=== PATIENT | female | born 1960 | race Caucasian/White ===

== ENCOUNTER 2017-12-07 14:59 | Emergency (ER) | payer OTHER ==
[~2017-12-07 14:59] MED LIST: CARI350 PO; COMPAZINE10 MG PO; DIAZ5 PO; ESOM20; FAMO40 PO; KETO10 PO; LOPE2C PO; LORA1 PO; LORA2 PO; MELO7.5; METCAR750; MORP15ER PO; OXYACE5T PO; OXYC15ER PO; OXYC30ER PO; OXYC5 PO; RXLORA1 PO; TRAACE
== END 2017-12-07 15:45 | disposition left against medical advice (07) ==
LOC: ER 14:59
DX: Z53.21 Procedure and treatment not carried out due to patient leaving prior to being seen by health care provider (principal)

== ENCOUNTER 2021-07-06 11:53 | Inpatient (IN) | payer BC ==
[~2021-07-06] VITALS: Ht 177.8 cm; Wt 172.8 kg
[2021-07-06] MEDS ORDERED: Oxycodone HCl20 M1 PO (12:15)
[2021-07-06] MEDS ORDERED: OXYCONTIN30 MG PO (12:15)
[2021-07-06 12:49] LABS: Hematocrit 40.3 % (33.0-51.0); Hemoglobin 13.6 g/dL (11.5-16.0); Mean Corpuscular HGB 31.9 pg (26.0-34.0); Mean Corpuscular HGB Conc 33.7 g/dL (31.5-36.5); Mean Corpuscular Volume 94 fL (80-100); Mean Platelet Volume 9.1 fL (9.1-12.4); Platelet Count 461 K/mm3 (150-400); RDW Coefficient Variation 13.7 % (11.7-14.2); RDW Standard Deviation 47.5 fL (35.1-46.3); Red Blood Cell Count 4.27 M/mm3 (3.80-5.20); White Blood Cell Count 33.26 K/mm3 (4.00-11.30)
[2021-07-06 13:01] LABS: BAND PERCENT MAN 18 % (0-8); BASOPHILS PERCENT MAN 0 % (0-2); EOSINOPHILS PERCENT MAN 0 % (0-6); LYMPHOCYTES ABSOLUTE MAN 1.99 K/mm3 (0.84-5.20); LYMPHOCYTES PERCENT MAN 6 % (21-46); MONOCYTES ABSOLUTE MAN 0.99 K/mm3 (0.16-1.47); MONOCYTES PERCENT MAN 3 % (4-13); NEUTROPHILS ABSOLUTE MAN 30.26 K/mm3 (1.96-9.15); SEG NEUTROPHILS PERCENT MAN 73 % (41-73); TOTAL CELLS COUNTED 100
[2021-07-06 13:02] LABS: Anion Gap 9 mmol/L (6-16); Blood Urea Nitrogen 21 mg/dL (8-24); CO2, Blood 21 mmol/L (21-32); Calcium, Blood 8.8 mg/dL (8.5-10.1); Chloride, Blood 91 mmol/L (98-108); Creatinine, Blood 0.78 mg/dL (0.40-1.00); Glomerular Filtration Rate >60 (60-); Glucose, Blood 142 mg/dL (70-99); Potassium, Blood 4.6 mmol/L (3.5-5.5); Sodium, Blood 121 mmol/L (136-145); Troponin I <0.015 ng/mL (0.000-0.040)
[2021-07-06 13:33] LABS: SARS-Cov-2 (COVID-19) PCR, MMC NEGATIVE (NEGATIVE)
[2021-07-06 17:33] LABS: Source, Urine Catheter
[2021-07-06 17:37] LABS: Appearance, Urine Clear (Clear); Bilirubin, Urine Neg (Neg); Blood, Urine Neg (Neg); Glucose Qualitative, Urine Neg (Neg); Ketones, Urine Neg (Neg); Leukocyte Esterase, Urine Neg (Neg); Nitrite, Urine Neg (Neg); Protein, Urine Neg (Neg); Specific Gravity, Urine 1.005 (1.003-1.022); Urobilinogen, Urine NORM (Normal)
[2021-07-06 17:38] LABS: Color, Urine Pale Yellow (P-Yellow)
--- NOTE | 2021-07-06 18:50 | NUR ---
PT ADMITED TO FLOOR AT 1700,PT HAVE CELLULITIS IN BOTH LEGS LOWER EXTREMITIES EDEMA,PT IS AO X 4, PT DENIES N/V,SOB, PT IS IN BED BED IN LOW POSITON,WALL LIGHT WITHIN REACH WILL CONTINUE TO MONITOR.
[2021-07-06 19:23] LABS: Anion Gap 7 mmol/L (6-16); Blood Urea Nitrogen 15 mg/dL (8-24); Bun/Creatinine Ratio 25.5 (12.0-20.0); CO2, Blood 21 mmol/L (21-32); Chloride, Blood 102 mmol/L (98-108); Creatinine, Blood 0.59 mg/dL (0.40-1.00); Glomerular Filtration Rate >60 (60-); Glucose, Blood 99 mg/dL (70-99); Potassium, Blood 3.2 mmol/L (3.5-5.5); Sodium, Blood 130 mmol/L (136-145)
--- NOTE | 2021-07-06 19:45 | NUR ---
PAIN MEDICATION NOTED IN THE EMAR THAT THE PT DID NOT RECEIVE THE SCHEDULED 1615 DOSE OF ROXICODONE. PT GIVEN MEDICATION BEFORE GOING TO CT SCAN.
--- NOTE | 2021-07-06 22:10 | NUR ---
VOICED WE COULD SPEAK WITH HER DAUGHTER RE HER CONDITION/UPDATE. WAS ASSISTED TO AIDE TO GO TO RADIOLOGY FOR CT OF BLE. I SPOKE WITH HER DAUGHTER "SUZE" RE HER GOING TO CT FOR EVAL OF BLE. DAUGHTER CURIOUS RE COVID, NO NOTED INFO IN ED DOCUMENTATION. NO NOTED FEVER OR COUGH AT THIS TIME OTHER THAN WHEN SHE TRIED TO DRINK H20 AND COUGHED AT THAT TIME. WILL MONITOR
--- NOTE | 2021-07-06 22:31 | NUR ---
RETURNED TO FLOOR FROM THE CT. ASSISTED BACK TO BED BY 4 PERSONS. HOB ELEVATED FOR COMFORT, CALL LIGHT IN REACH
--- NOTE | 2021-07-06 23:13 | NUR ---
TEMP 103.3, NOTIFIED AND ORDERS FOR TYLENOL PO PRN OBTAINED.
--- NOTE | 2021-07-07 00:13 | NUR ---
TYLENOL EFFECTIVE, TEMP 99.4 TEMPORAL. ALERT AND ORIENTED. CALL LIGHT IN REACH
[2021-07-07 00:44] LABS: Anion Gap 8 mmol/L (6-16); Blood Urea Nitrogen 16 mg/dL (8-24); Bun/Creatinine Ratio 19.3 (12.0-20.0); CO2, Blood 23 mmol/L (21-32); Chloride, Blood 93 mmol/L (98-108); Creatinine, Blood 0.83 mg/dL (0.40-1.00); Glomerular Filtration Rate >60 (60-); Glucose, Blood 138 mg/dL (70-99); Potassium, Blood 4.2 mmol/L (3.5-5.5); Sodium, Blood 124 mmol/L (136-145)
[2021-07-07 00:45] LABS: Calcium, Blood 8.5 mg/dL (8.5-10.1)
--- NOTE | 2021-07-07 03:16 | NUR ---
EDGE BLACKER SUMMARY HAS BEEN RESTING QUIETLY WITH FEW INTERRUPTIONS SINCE RETURNING TO ROOM AFTER CT OF BLE. HOB ELEVATED FOR BREATHING COMFORT AND PER PT REQUEST SHE VOICED HX OF "BROKE (HER) BACK" AND IT FEELS BETTER IN THIS POSITION. VOICED HX NECK SURGERY IN THE PAST AND HAS HAD DECREASED FEELING IN HER HANDS SINCE BACK THEN. TEMP WAS ELEVATED (103.3) AND RECEIVED TYLENOL. LATER TEMP WAS 99.4 TEMPORAL, MED EFFECTIVE. MCINTYRE DRAINING. BLE SWOLLEN WITH DISCOLORED, DRY SKIN. IV ANTIBIOTICS ADMNISTERED FOR INFLAMMATION. CALL LIGHT IN REACH
[2021-07-07 06:23] LABS: Hematocrit 36.9 % (33.0-51.0); Hemoglobin 12.7 g/dL (11.5-16.0); Mean Corpuscular HGB 32.1 pg (26.0-34.0); Mean Corpuscular HGB Conc 34.4 g/dL (31.5-36.5); Mean Corpuscular Volume 93 fL (80-100); Mean Platelet Volume 9.2 fL (9.1-12.4); NRBC ABSOLUTE 0.03 K/mm3 (0.00-0.02); NRBC Auto 0.1 /100 WBC (0.0-0.2); Platelet Count 444 K/mm3 (150-400); RDW Coefficient Variation 13.9 % (11.7-14.2); Red Blood Cell Count 3.96 M/mm3 (3.80-5.20)
[2021-07-07 06:39] LABS: Alanine Aminotransfer (ALT/SGP 30 U/L (12-78); Albumin, Blood 1.9 g/dL (3.4-5.0); Albumin/Globulin Ratio 0.5 (0.8-1.8); Alk Phos 120 U/L (50-136); Anion Gap 9 mmol/L (6-16); Aspartate Aminotrans (AST/SGOT 15 U/L (12-37); Bilirubin, Total 1.2 mg/dL (0.1-1.0); Blood Urea Nitrogen 16 mg/dL (8-24); Bun/Creatinine Ratio 20.7 (12.0-20.0); CO2, Blood 23 mmol/L (21-32); Calcium, Blood 8.2 mg/dL (8.5-10.1); Chloride, Blood 93 mmol/L (98-108); Creatinine, Blood 0.77 mg/dL (0.40-1.00); Globulin, Blood 3.7 g/dL (2.2-4.0); Glomerular Filtration Rate >60 (60-); Glucose, Blood 128 mg/dL (70-99); Potassium, Blood 4.1 mmol/L (3.5-5.5); Sodium, Blood 125 mmol/L (136-145); Total Protein, Blood 5.6 g/dL (6.4-8.2)
[2021-07-07 07:10] LABS: BAND PERCENT MAN 26 % (0-8); BASOPHILS PERCENT MAN 0 % (0-2); EOSINOPHILS PERCENT MAN 0 % (0-6); LYMPHOCYTES ABSOLUTE MAN 4.44 K/mm3 (0.84-5.20); LYMPHOCYTES PERCENT MAN 10 % (21-46); METAMYELOCYTE ABSOLUTE MAN 0.44 K/mm3 (0.00-0.00); METAMYELOCYTE PERCENT MAN 1 % (0-0); MONOCYTES ABSOLUTE MAN 0.44 K/mm3 (0.16-1.47); MONOCYTES PERCENT MAN 1 % (4-13); MYELOCYTE ABSOLUTE MAN 1.77 K/mm3 (0.00-0.00); MYELOCYTE PERCENT MAN 4 % (0-0); NEUTROPHILS ABSOLUTE MAN 37.29 K/mm3 (1.96-9.15); SEG NEUTROPHILS PERCENT MAN 58 % (41-73); TOTAL CELLS COUNTED 100
[2021-07-07 12:27] LABS: Anion Gap 8 mmol/L (6-16); Blood Urea Nitrogen 17 mg/dL (8-24); Bun/Creatinine Ratio 23.2 (12.0-20.0); CO2, Blood 25 mmol/L (21-32); Calcium, Blood 7.9 mg/dL (8.5-10.1); Chloride, Blood 93 mmol/L (98-108); Creatinine, Blood 0.73 mg/dL (0.40-1.00); Glomerular Filtration Rate >60 (60-); Glucose, Blood 184 mg/dL (70-99); Potassium, Blood 4.2 mmol/L (3.5-5.5); Sodium, Blood 126 mmol/L (136-145)
--- NOTE | 2021-07-07 14:48 | NUR ---
Pt declined visit because she shared she was not feeling well.
--- NOTE | 2021-07-07 16:45 | NUR ---
PATIENT IS ALERT ORIENTED X 4, PT IS UP WITH ASSIST THIS AFTERNOON TO USE THE BATHROOM,PT HAVE INCREASE CELLULITIS AND EDEMA IN BOTH LOWER EXTREMITIES,PT IS STILL TAKING ANTIBIOTICS,PT HAVE A 20G ON LEFT WRIST,PT IS ON FLUID RESTRICTION,PT IS IN BED,BED IN LOW POSITION,CALL LIGHT WITHIN REACH.WILL CONTINUE TO MONITOR.
--- NOTE | 2021-07-07 19:54 | NUR ---
AWAKE, TALKATIVE. AFFECT MORE CHEERFUL THAN NOTED 24 HR AGO. LUNG SOUNDS MORE CLEAR. PT VOICED FEELING BETTER, LESS FATIGUED. VOICED UNDERSTANDING AND AGREEMENT OF FLUID RESTRICTION. CALL LIGHT IN REACH
--- NOTE | 2021-07-08 03:05 | NUR ---
RURAL SOCIOLOGIST SUMMARY ALTHOUGH VOICED UNDERSTANDING AND AGREEMENT OF FLUID RESTRICTION EARLIER, SEEMS DETERMINED TO ATTEMPT TO COAX AND VOICE FRUSTRATION WITH STAFF RE SAID FLUID RESTRICTION INTERMITTENTLY SINCE WHEN AWAKE. HAS BEEN RESTING QUIETLY WITH OCCASIONAL INTERRUPTION THIS SHIFT. CALL LIGHT IN REACH. FLUID RESTRICTION CONTINUES PER MD ORDERS. WILL CONTINUE TO DISCUSS AND EXPLAIN SAID RESTRICTION WITH PT FOR HEALTH REASONS. BLE CELLULITIS CONTINUES, CLEANSED AND TOPICAL CREAM WAS APPLIED - SEE MAR FOR DETAILS.
--- NOTE | 2021-07-08 04:35 | NUR ---
PT VERY DROWSY AND SNORING AT TIME OF 0400 PAIN MEDICATION. THIS RN ABLE TO UNHOOK IV DRIP WHILE PT SLEEPING. PT ROUSES WHEN HAND IS SHAKEN VIGOROUSLY AND PT VERY SOMNOLENT WHEN SPOKEN TO. WHEN ASKED PAIN RATING, PT REPORTS AN 8/10.
[2021-07-08] MEDS ORDERED: LORAZEPAM TAB 1MG (08:29)
[2021-07-08 09:00] LABS: Hematocrit 37.6 % (33.0-51.0); Hemoglobin 12.8 g/dL (11.5-16.0); Mean Corpuscular HGB 31.6 pg (26.0-34.0); Mean Corpuscular Volume 93 fL (80-100); Mean Platelet Volume 9.3 fL (9.1-12.4); NRBC ABSOLUTE 0.04 K/mm3 (0.00-0.02); NRBC Auto 0.1 /100 WBC (0.0-0.2); Platelet Count 441 K/mm3 (150-400); RDW Coefficient Variation 14.1 % (11.7-14.2); RDW Standard Deviation 47.8 fL (35.1-46.3); Red Blood Cell Count 4.05 M/mm3 (3.80-5.20)
[2021-07-08 09:08] LABS: White Blood Cell Count 56.56 K/mm3 (4.00-11.30)
[2021-07-08 09:52] LABS: Anion Gap 10 mmol/L (6-16); Blood Urea Nitrogen 19 mg/dL (8-24); Bun/Creatinine Ratio 23.6 (12.0-20.0); CO2, Blood 23 mmol/L (21-32); Calcium, Blood 8.5 mg/dL (8.5-10.1); Chloride, Blood 93 mmol/L (98-108); Glomerular Filtration Rate >60 (60-); Glucose, Blood 140 mg/dL (70-99); Potassium, Blood 3.9 mmol/L (3.5-5.5); Sodium, Blood 126 mmol/L (136-145)
[2021-07-08 10:01] LABS: Vancomycin, Trough 17.5 ug/mL (5.0-10.0)
--- NOTE | 2021-07-08 18:57 | NUR ---
PT IS AO X 4, PT IS IN BED, MCINTYRE IS DRAINING.PT HAVE CELLUTIS,EDEMA IN BOTH LEGS,PT IS BED NO ACUTE CHANGES,BED IN LOW POSITON,GAVE AN UPDATE TO CALL LIGHT IN REACH, WILL CONTINUE TO MONITOR.
--- NOTE | 2021-07-09 00:50 | NUR ---
PT COMPLAINS OF FEELING "LIKE I CAN'T CATCH MY BREATH." LUNG SOUNDS SLIGHTLY WET TO THE BASES BUT CLEAR IN THE UPPER LOBES. PT REPORTS INCREASED ANXIETY AND IS REQUESTING BREATHING TX - NOT DUE FOR ANOTHER THREE HOURS. PT INFORMED OF THIS AND REQUESTS ATIVAN INSTEAD. OFFERED PT TESSALON PERRLS BUT PT REFUSED. PT GIVEN HOT TEA BY REQUEST. PT CONTINUALLY REQUESTING WATER. PT INFORMED THAT HER INTAKE IS COUNTERACTING THE DIURESING PT COMPLAINED OF BEING "SWOLLEN IN THE HANDS." PT STATES "I HAVEN'T DRANK THAT MUCH" AND INFORMED THIS RN THAT SHE SPOKE WITH THE HOSPITALIST WHO REMOVED THE FLUID RESTRICTION - PT GIVEN MORE WATER PER REQUEST.
[2021-07-09 05:25] LABS: Hematocrit 34.2 % (33.0-51.0); Hemoglobin 11.8 g/dL (11.5-16.0); Mean Corpuscular HGB Conc 34.5 g/dL (31.5-36.5); Mean Corpuscular Volume 93 fL (80-100); Mean Platelet Volume 9.6 fL (9.1-12.4); NRBC ABSOLUTE 0.02 K/mm3 (0.00-0.02); Platelet Count 424 K/mm3 (150-400); RDW Coefficient Variation 14.1 % (11.7-14.2); RDW Standard Deviation 47.5 fL (35.1-46.3); Red Blood Cell Count 3.69 M/mm3 (3.80-5.20)
[2021-07-09 05:53] LABS: White Blood Cell Count 55.29 K/mm3 (4.00-11.30)
--- NOTE | 2021-07-09 06:03 | NUR ---
HOSPITALIST CONTACTED REGARDING CRITICAL LAB VALUE - WBC COUNT OF 55.26, DECREASED FROM 56.56 YESTERDAY.
[2021-07-09 07:01] LABS: BAND PERCENT MAN 10 % (0-8); BASOPHILS PERCENT MAN 0 % (0-2); EOSINOPHILS PERCENT MAN 0 % (0-6); LYMPHOCYTES ABSOLUTE MAN 0.55 K/mm3 (0.84-5.20); LYMPHOCYTES PERCENT MAN 1 % (21-46); METAMYELOCYTE ABSOLUTE MAN 0.55 K/mm3 (0.00-0.00); METAMYELOCYTE PERCENT MAN 1 % (0-0); MONOCYTES ABSOLUTE MAN 1.65 K/mm3 (0.16-1.47); MONOCYTES PERCENT MAN 3 % (4-13); MYELOCYTE ABSOLUTE MAN 2.76 K/mm3 (0.00-0.00); MYELOCYTE PERCENT MAN 5 % (0-0); NEUTROPHILS ABSOLUTE MAN 49.76 K/mm3 (1.96-9.15); SEG NEUTROPHILS PERCENT MAN 80 % (41-73); TOTAL CELLS COUNTED 100
[2021-07-09 15:01] LABS: Performing Lab SYMBIODX; Test Name FLOW CYTOMETRY
--- NOTE | 2021-07-09 18:48 | NUR ---
SHIFT SUMMARY PT A/O X3 BUT IS QUITE LABILE THIS SHIFT. SHE IS A RAMBLING HISTORIAN AND WAS PLEASANT AND TALKATIVE FOR HALF THE SHIFT AND WITHDRAWN AND TEARFUL FOR THE OTHER HALF OF THE SHIFT. LEGS REMAIN SWOLLEN/RED/PAINFUL. NEW IV INSERTED THIS SHIFT. MCINTYRE DRAINING TO GRAVITY. HEMATOLOGY CONSULT THIS SHIFT DUE HER HIGH WBC LEVELS. VSS. WILL REPORT TO ONCOMING RN.
--- NOTE | 2021-07-09 23:23 | NUR ---
DISCUSSED WITH PT THE NEED TO MOVE HER TO A LIFT ROOM ACROSS THE HERRING. PT REFUSING DUE TO "MY ANXIETY AND MY PAIN" SAYING "I JUST CAN'T DO IT RIGHT NOW." INFORMED PT OF THE NEED TO MOVE DUE TO PATIENT AND STAFF SAFETY - PT STILL REFUSING. PT INFORMED THAT SHE WILL NEED TO BE ROLLED FOR ANY BED CHANGES AND IS AGREEABLE AT THIS TIME.
--- NOTE | 2021-07-10 04:20 | NUR ---
INTERNAL COMBUSTION ENGINE ASSEMBLER SUMMARY PT ADMITTED FOR CELLULITIS AND EDEMA OF THE LOWER EXTREMITIES. PT IS NOW FULL CODE. PT MOOD VERY LABILE THROUGHOUT SHIFT. PT BECOMES EASILY AGITATED WHEN ASKED TO CHANGE ROOMS, REFUSING DUE TO FEAR OF INCREASING ANXIETY. PT HAS BEEN RESTING. NO OTHER CONCERNS THIS SHIFT.
--- NOTE | 2021-07-10 06:01 | NUR ---
PT FOUND TO HAVE GOTTEN TO THE EDGE OF THE BED ON HER OWN. STAFF TO TO ASSIST HER UP WITH WALKER FOR BED CHANGE. BED ALARM TURNED ON. PT VERY UNHAPPY WITH STAFF AND CARE PROVIDED. PT INFORMED THAT CARE IS IN INTEREST OF HER SAFETY AND HEALTH. PT CURRENTLY UPSET ON PHONE WITH FAMILY MEMBER.
[2021-07-10 09:29] LABS: Vancomycin, Trough 24.5 ug/mL (5.0-10.0)
--- NOTE | 2021-07-10 12:16 | NUR ---
Ethics consultation performed. Discussion with the attending provider facilitated regarding the testamentary capacity of the principal. The patient is expressing that she is disatisfied with the care and would like to abscond from the hospital against medical advice. If the principals mentation is intact, and she has not been deemed imcompetent or incapacitated, then despite the protestations of the family, as long as she is not demonstratating suicideal ideations, then she is allowed to depart the facility without intereference. Thank you for this consult. González Gonsales ThD
[2021-07-10 12:38] LABS: Hematocrit 38.6 % (33.0-51.0); Hemoglobin 13.1 g/dL (11.5-16.0); Mean Corpuscular HGB 31.9 pg (26.0-34.0); Mean Corpuscular HGB Conc 33.9 g/dL (31.5-36.5); Mean Corpuscular Volume 94 fL (80-100); Mean Platelet Volume 10.6 fL (9.1-12.4); NRBC ABSOLUTE 0.02 K/mm3 (0.00-0.02); Platelet Count 460 K/mm3 (150-400); RDW Coefficient Variation 14.2 % (11.7-14.2); RDW Standard Deviation 48.3 fL (35.1-46.3); Red Blood Cell Count 4.11 M/mm3 (3.80-5.20); White Blood Cell Count 42.92 K/mm3 (4.00-11.30)
[2021-07-10 14:32] LABS: BAND PERCENT MAN 18 % (0-8); BASOPHILS PERCENT MAN 0 % (0-2); EOSINOPHILS PERCENT MAN 0 % (0-6); LYMPHOCYTES ABSOLUTE MAN 4.29 K/mm3 (0.84-5.20); LYMPHOCYTES PERCENT MAN 10 % (21-46); MONOCYTES ABSOLUTE MAN 1.71 K/mm3 (0.16-1.47); MONOCYTES PERCENT MAN 4 % (4-13); MYELOCYTE PERCENT MAN 7 % (0-0); SEG NEUTROPHILS PERCENT MAN 61 % (41-73); TOTAL CELLS COUNTED 100
--- NOTE | 2021-07-10 19:25 | NUR ---
SHIFT SUMMARY PT HAD A DIFFICULT SHIFT AND HAS BEEN QUITE EMOTIONAL. VERY UPSET/PARANOID AND HAS BEEN CALLING FAMILY CONSTANTLY. PT IS ANXIOUS AND HAS BEEN SLIGHTLY CONFUSED. REQUESTING TO GO AMA AND EDUCATED ON THE RISKS OF DOING SO. FAMILY DOES NOT FEEL THAT IT IS SAFE FOR THE PATIENT TO GO AT THIS TIME. CAME IN TO HELP SETTLE PATIENT. THIS HELPED SOMEWHAT AND THE PATIENT HAS AGREED TO STAY AFTER RECEIVING RESULTS FROM HEMATOLOGY THAT HER CANCER HAS NOT COME BACK. PT REFUSES TO HAVE PSYCH CONSULT AND IS AGREEABLE TO STAY AT THE HOSPITAL AND RECEIVE TREATMENT. VSS. WILL REPORT TO ONCOMING RN.
--- NOTE | 2021-07-11 04:56 | NUR ---
SHIFT SUMMARY PT'S MOOD IMPROVED THIS EVENING COMPARED TO BEHAVIOUR REPORTED BY DAY RN. PT PLEASANT AND COOPERATIVE THIS EVENING. DECLINED TO TAKE A COUPLE MEDICATIONS BUT OTHERWISE ALLOWED FOR MOST OF ASSESSMENT AND REPOSITIONING. BLE'S WITH REDNESS, SWELLING, SCALY SKIN. WITH SOME WEEPING. OPEN TO AIR. CHUCKS BENEATH. 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 MEDICATED WITH SCHEDULED Q 8 HR PAIN MEDICATION ALTERNATING TO BE EVERY 4 HRS. PT SLEPT OFF AND ON. PRODUCTIVE COUGH. WHITE/CLEAR SPUTUM. MCINTYRE CATH PATENT AND DRAINING. VITAL SIGNS STABLE. WILL CONTINUE TO MONITOR.
[2021-07-11 08:08] LABS: Hematocrit 38.1 % (33.0-51.0); Hemoglobin 12.8 g/dL (11.5-16.0); Mean Corpuscular HGB 31.3 pg (26.0-34.0); Mean Corpuscular HGB Conc 33.6 g/dL (31.5-36.5); Mean Corpuscular Volume 93 fL (80-100); Mean Platelet Volume 9.5 fL (9.1-12.4); Platelet Count 495 K/mm3 (150-400); RDW Coefficient Variation 14.2 % (11.7-14.2); RDW Standard Deviation 47.9 fL (35.1-46.3); Red Blood Cell Count 4.09 M/mm3 (3.80-5.20); White Blood Cell Count 32.52 K/mm3 (4.00-11.30)
[2021-07-11 08:25] LABS: Albumin, Blood 1.7 g/dL (3.4-5.0); Anion Gap 7 mmol/L (6-16); Blood Urea Nitrogen 16 mg/dL (8-24); Bun/Creatinine Ratio 23.5 (12.0-20.0); CO2, Blood 28 mmol/L (21-32); Calcium, Blood 8.7 mg/dL (8.5-10.1); Chloride, Blood 94 mmol/L (98-108); Creatinine, Blood 0.68 mg/dL (0.40-1.00); Glomerular Filtration Rate >60 (60-); Glucose, Blood 180 mg/dL (70-99); Phosphorus, Blood 3.2 mg/dL (2.5-4.9); Potassium, Blood 3.9 mmol/L (3.5-5.5); Sodium, Blood 129 mmol/L (136-145)
[2021-07-11 08:27] LABS: BAND PERCENT MAN 1 % (0-8); BASOPHILS PERCENT MAN 0 % (0-2); EOSINOPHILS PERCENT MAN 0 % (0-6); LYMPHOCYTES ABSOLUTE MAN 0.97 K/mm3 (0.84-5.20); LYMPHOCYTES PERCENT MAN 3 % (21-46); METAMYELOCYTE ABSOLUTE MAN 0.65 K/mm3 (0.00-0.00); METAMYELOCYTE PERCENT MAN 2 % (0-0); MONOCYTES ABSOLUTE MAN 0.65 K/mm3 (0.16-1.47); MONOCYTES PERCENT MAN 2 % (4-13); MYELOCYTE ABSOLUTE MAN 1.62 K/mm3 (0.00-0.00); MYELOCYTE PERCENT MAN 5 % (0-0); NEUTROPHILS ABSOLUTE MAN 28.61 K/mm3 (1.96-9.15); SEG NEUTROPHILS PERCENT MAN 87 % (41-73); TOTAL CELLS COUNTED 100
--- NOTE | 2021-07-11 16:50 | NUR ---
SHIFT SUMMARY PT IS AO. PT MEDICATED FOR PAIN T/O SHIFT WITH SCHEDULED MEDS. PT FELT NAUSEATED AFTER AMBULATING TO THE BATHROOM. PT DENIES SOB. PT APPETITE IS GOOD. PT IS BEDREST OR ONE ASSIST FOR AMBULATION. PT MOOD IS LABILE, THOUGH SHE WAS COOPERATIVE WITH THIS RN. PT REFUSED [facility] EVALUATION. PT IS IN BED, CALL LIGHT IN REACH, LOW POSITION.
[2021-07-11 20:49] LABS: Vancomycin, Trough 16.5 ug/mL (5.0-10.0)
--- NOTE | 2021-07-12 05:18 | NUR ---
SHIFT SUMMARY PT REMAINED PLEASANT AND COOPERATIVE THIS EVENING. BLE'S REMAIN RED, SWOLLEN, AND WEEPING. SCHEDULED CREAM APPLIED. PT DID GET UP TO THE BSC WITH 2 PERSON ASSIST TO STAND. WALKED, SLOWLY, BUT STEADILY WITH FWW. PT HAD A LARGE FORMED BROWN BM THIS EVENING. OTHERWISE PT HAD A MOSTLY UNEVENTFUL NIGHT. MEDICATED FOR PAIN PER EMAR. NEW IV PLACED TO LAC BY LIQUID LOADER. VITAL SIGNS STABLE. WILL CONTINUE TO MONITOR.
[2021-07-12 09:28] LABS: Hematocrit 37.5 % (33.0-51.0); Hemoglobin 12.8 g/dL (11.5-16.0); Mean Corpuscular HGB 31.4 pg (26.0-34.0); Mean Corpuscular HGB Conc 34.1 g/dL (31.5-36.5); Mean Corpuscular Volume 92 fL (80-100); Mean Platelet Volume 9.4 fL (9.1-12.4); Platelet Count 522 K/mm3 (150-400); RDW Standard Deviation 46.5 fL (35.1-46.3); Red Blood Cell Count 4.08 M/mm3 (3.80-5.20); White Blood Cell Count 26.34 K/mm3 (4.00-11.30)
[2021-07-12 09:53] LABS: BAND PERCENT MAN 29 % (0-8); BASOPHILS PERCENT MAN 0 % (0-2); EOSINOPHILS PERCENT MAN 0 % (0-6); LYMPHOCYTES % ATYPICAL MANUAL 1 % (0-0); LYMPHOCYTES PERCENT MAN 7 % (21-46); METAMYELOCYTE ABSOLUTE MAN 0.26 K/mm3 (0.00-0.00); METAMYELOCYTE PERCENT MAN 1 % (0-0); MONOCYTES ABSOLUTE MAN 0.26 K/mm3 (0.16-1.47); MONOCYTES PERCENT MAN 1 % (4-13); SEG NEUTROPHILS PERCENT MAN 61 % (41-73); TOTAL CELLS COUNTED 100
--- NOTE | 2021-07-12 15:54 | NUR ---
SHIFT SUMMARY PT IS AOX4. PT MEDICATED FOR PAIN WITH SCHEDULED MEDS PER EMAR. PT DENIES N/V, SOB. PT IS COOPERATIVE WITH CARE TODAY. PT WORKED WITH PT/OT AND USED BSC. PT APPETITE IS GOOD. PT WBC TRENDING DOWN WITH IV ABX. MCINTYRE PATENT AND DRAINING. PT IS IN BED, CALL LIGHT IN REACH, LOW POSITION.
--- NOTE | 2021-07-13 05:23 | NUR ---
RECEIVED PATIENT IN BED AAOX3. RESPIRATION UNLABORED. STILL COMPLAINS OF GENERALIZED PAIN RATED AT 10 BUT CONTROLLED WITH PAIN MEDS. POWER GLIDE TO RUE WITH DRESSING DRY AND INTACT. MCINTYRE PATENT DRAINING CLEAR YELLOW URINE. SAFETY MEASURES MAINTAINED. ASSISTED WITH ADLS. LOWER EXTREMITIES WITH REDNESS AND SWELLING BILATERALLY. DRY AND SCALY SKIN. CREAM APPLIED. ENCOURAGE FREQUENT TURNING AND REPOSITIONING FOR COMFORT. ROUNDING IN PROGRESS.
[2021-07-13 08:27] LABS: Hemoglobin 12.9 g/dL (11.5-16.0); Mean Corpuscular HGB Conc 34.9 g/dL (31.5-36.5); Mean Corpuscular Volume 92 fL (80-100); Mean Platelet Volume 9.2 fL (9.1-12.4); Platelet Count 521 K/mm3 (150-400); RDW Coefficient Variation 13.9 % (11.7-14.2); RDW Standard Deviation 46.5 fL (35.1-46.3); Red Blood Cell Count 4.03 M/mm3 (3.80-5.20); White Blood Cell Count 20.81 K/mm3 (4.00-11.30)
[2021-07-13 08:44] LABS: Creatinine, Blood 0.62 mg/dL (0.40-1.00)
--- NOTE | 2021-07-13 19:12 | NUR ---
Alert and oriented x3 , c/o hip pain, oxycodone and xxycontin were given and it was effective .continue on vanco ABO for bilateral cellulities, no adverse effects noted. Ativan 1 mg was given for anxiety. Vital signs stable. hayes cath is patent , draining adequate yellow urine. Continue to monitor.
--- NOTE | 2021-07-14 05:28 | NUR ---
RECEIVED PATIENT IN BED AAOX3. SHE COMPLAINS OF PAIN TO BILATERAL EXTREMITIES. MEDICATION GIVEN WITH GOOD EFFECT. ANXIOUS AT TIMES. ATIVAN GIVEN PRN. PATIENT REPORTS FEELING BETTER. MCINTYRE PATENT WITH CLEAR YELLOW URING. SAFETY AND COMFORT MEASURES MAINTAINED. CALL LIGHT WITHIN REACH. FREQUENT ROUNDING IN PROGRESS.
[2021-07-14 08:40] LABS: Hematocrit 39.3 % (33.0-51.0); Hemoglobin 13.3 g/dL (11.5-16.0); Mean Corpuscular HGB 31.6 pg (26.0-34.0); Mean Corpuscular HGB Conc 33.8 g/dL (31.5-36.5); Mean Corpuscular Volume 93 fL (80-100); Mean Platelet Volume 9.1 fL (9.1-12.4); Platelet Count 544 K/mm3 (150-400); RDW Coefficient Variation 14.2 % (11.7-14.2); RDW Standard Deviation 48.4 fL (35.1-46.3); Red Blood Cell Count 4.21 M/mm3 (3.80-5.20)
[2021-07-14 09:08] LABS: Albumin, Blood 1.9 g/dL (3.4-5.0); Anion Gap 5 mmol/L (6-16); Blood Urea Nitrogen 10 mg/dL (8-24); Bun/Creatinine Ratio 16.1 (12.0-20.0); CO2, Blood 32 mmol/L (21-32); Calcium, Blood 8.5 mg/dL (8.5-10.1); Chloride, Blood 91 mmol/L (98-108); Creatinine, Blood 0.62 mg/dL (0.40-1.00); Glomerular Filtration Rate >60 (60-); Glucose, Blood 231 mg/dL (70-99); Phosphorus, Blood 2.9 mg/dL (2.5-4.9); Potassium, Blood 3.5 mmol/L (3.5-5.5); Sodium, Blood 128 mmol/L (136-145)
--- NOTE | 2021-07-14 18:59 | NUR ---
Alert and oriented x3 , able to make needs known. C/O bilateral legs pain , continue on oxycodone and oxycontin , it was effective. Tylenol 650 mg was effective for pain management. Vancomycin was given for bilateral cellulitis , no adverse effects noted. vital signs are stable.
--- NOTE | 2021-07-15 01:06 | NUR ---
RECEIVED PATIENT ON UNIT AAOX3. STILL COMPLAINS OF PAIN TO LOWER EXTREMITIES. POWER GLIDE TO LEFT ARM PATENT. MCINTYRE DRAINING CLEAR YELLOW URINE. MEDICATED ORDERED FOR PAIN WITH GOOD RELIEF. SAFETY MEASURES IMPLEMENTED AND MAINTAINED. PATIENT TRANSFERRED TO ROOM 310 WITHOUT ANY DISTRESS. REPORT TO ACCEPTING NURSE DEEPTHI.
[2021-07-15 07:47] LABS: Hematocrit 37.2 % (33.0-51.0); Hemoglobin 12.7 g/dL (11.5-16.0); Mean Corpuscular HGB 31.8 pg (26.0-34.0); Mean Corpuscular HGB Conc 34.1 g/dL (31.5-36.5); Mean Corpuscular Volume 93 fL (80-100); Mean Platelet Volume 9.1 fL (9.1-12.4); Platelet Count 582 K/mm3 (150-400); RDW Coefficient Variation 14.2 % (11.7-14.2); RDW Standard Deviation 48.1 fL (35.1-46.3); White Blood Cell Count 16.28 K/mm3 (4.00-11.30)
[2021-07-15] MEDS ORDERED: LEVO750 PO (11:59)
[2021-07-15] MEDS ORDERED: MIRALAX17 GM PO (12:01)
[2021-07-15] MEDS ORDERED: Triamcinolone A15 G4 TOP (12:05)
[2021-07-15] MEDS ORDERED: VISBIOME 112.51 EACH PO (12:06)
[2021-07-15] MEDS ORDERED: VITAMIN D31000 UNI1 PO (12:06)
[2021-07-15] MEDS ORDERED: FURO20 PO (12:06)
--- NOTE | 2021-07-15 12:07 | NUR ---
PATIENT A&OX4 ABLE TO VERBALIZE NEEDS WOUND CARE PROVIDED ORDERED TO BLE (CELLULITIS) TOLERATED WELL BLE REMAINS WITH EDEMA AND REDDNESS PATIENT STATES THAT THE LOOK AND FEEL BETTER TO HER
--- NOTE | 2021-07-15 14:27 | NUR ---
MCINTYRE TO CD D/C'D ORDERED PATIENT TOLERATED WELL 500ML CLEAR YELLOW URINE VOIDED POWER GLIDE IV D/C'S FROM LEFT AC NO COMPLICATIONS NOTED PATIENT ANTICIPATING DISCHARGE TO HOME WAITING ON RIDE ALL DISCHARGE INSTRUCIONS/PAPERWORK PROVIDED INCLUDING MEDICATIONS DISEASE PROCESS MANAGEMENT FOLLOW UP CARE AND WHEN TO SEEK MED ATTENTION PATIENT VERBALIZES GOOD UNDERSTANDING OF ALL DISCHARGE INSTRUCTIONS PROVIDED ASSISTED WITH ADL'S PER PATIENT PREFERENCE TO BE TRANSPORTED HOME VIA STRETCHER/AMBULANCE ARRANGEMENT FOR P/U MADE BY WAITING FOR RIDE AT THIS TIME
--- NOTE | 2021-07-15 15:18 | NUR ---
PATIENT DISCHARGED AT THIS TIME TRANSPORTED HOME VIA STRETCHER/AMBULANCE OFFERS NO COMPLAINTS UPON D/C A&OX4 WITH CLEAR SPEECH NO S/S DISTRESS NOTED RESP EASY/EVEN/UNLABORED
== END 2021-07-15 15:20 | disposition home health service (06) | DRG 871 ==
LOC: ER 11:53 → MEDS 16:22 → ENPENDDIS 07-15 11:34 → MEDS 07-15 15:20
PROVIDERS: Internal Medicine; Internal Medicine Hematology & Oncology; Pharmacist; Student in an Organized Health Care Education/Training Program; ADMIT Hospitalist
DX: A41.9 Sepsis, unspecified organism (principal); I50.33 Acute on chronic diastolic (congestive) heart failure; L03.115 Cellulitis of right lower limb; L03.116 Cellulitis of left lower limb; E87.1 Hypo-osmolality and hyponatremia; C94.81 Other specified leukemias, in remission; Z68.43 Body mass index [BMI] 50.0-59.9, adult; Z20.822 Contact with and (suspected) exposure to COVID-19; I11.0 Hypertensive heart disease with heart failure; F41.9 Anxiety disorder, unspecified; M54.9 Dorsalgia, unspecified; G89.29 Other chronic pain; E66.9 Obesity, unspecified; F22 Delusional disorders; F32.9 Major depressive disorder, single episode, unspecified; I89.0 Lymphedema, not elsewhere classified; J45.909 Unspecified asthma, uncomplicated; K21.9 Gastro-esophageal reflux disease without esophagitis; Z88.2 Allergy status to sulfonamides; Z88.0 Allergy status to penicillin; Z88.6 Allergy status to analgesic agent; Z88.8 Allergy status to other drugs, medicaments and biological substances; Z79.899 Other long term (current) drug therapy; Z85.830 Personal history of malignant neoplasm of bone; Z90.49 Acquired absence of other specified parts of digestive tract; Z92.21 Personal history of antineoplastic chemotherapy; Z90.710 Acquired absence of both cervix and uterus; Z98.890 Other specified postprocedural states
CPT/HCPCS: 36415; 51702; 71045; 73701; 80048; 80053; 80069; 80202; 81003; 81206; 81207; 82436; 82565; 82570; 83036; 83605; 83615; 83880; 83930; 83935; 84145; 84300; 84443; 84484; 84540; 85025; 85027; 85060; 87040; 88184; 88185; 93005; 93010; 93306; 93970; 94640; 94760; 94762; 96374-59; 96375-59; 97110; 97161; 97167; 97530; 97535; 99285-25; A9270; J1650; J1940; J2405; J3370; J7050; J7120; Q9967; U0004

== ENCOUNTER → 2021-07-31 | Outpatient (CLI) | payer BC ==
[~2021-07-31] MED LIST changes: +FURO20 PO; +LEVO750 PO; +LORAZEPAM TAB 1MG; +MIRALAX17 GM PO; +OXYCONTIN30 MG PO; +Oxycodone HCl20 M1 PO; +Triamcinolone A15 G4 TOP; +VISBIOME 112.51 EACH PO; +VITAMIN D31000 UNI1 PO
[2021-07-31 17:45] LABS: BASOPHILS ABSOLUTE AUTO 0.05 K/mm3 (0.00-0.23); BASOPHILS PERCENT AUTO 0 % (0-2); EOSINOPHILS ABSOLUTE AUTO 0.33 K/mm3 (0.00-0.68); EOSINOPHILS PERCENT AUTO 3 % (0-6); Hematocrit 35.3 % (33.0-51.0); Hemoglobin 11.2 g/dL (11.5-16.0); IMMATURE GRAN ABSOLUTE AUTO 0.27 K/mm3 (0.00-0.10); IMMATURE GRAN PERCENT AUTO 2 % (0-1); LYMPHOCYTES ABSOLUTE AUTO 2.24 K/mm3 (0.84-5.20); LYMPHOCYTES PERCENT AUTO 17 % (21-46); MONOCYTES PERCENT AUTO 11 % (4-13); Mean Corpuscular HGB 30.9 pg (26.0-34.0); Mean Corpuscular HGB Conc 31.7 g/dL (31.5-36.5); Mean Corpuscular Volume 98 fL (80-100); Mean Platelet Volume 9.6 fL (9.1-12.4); NEUTROPHILS ABSOLUTE AUTO 8.66 K/mm3 (1.96-9.15); NEUTROPHILS PERCENT AUTO 67 % (41-73); Platelet Count 606 K/mm3 (150-400); RDW Coefficient Variation 14.9 % (11.7-14.2); RDW Standard Deviation 53.9 fL (35.1-46.3); Red Blood Cell Count 3.62 M/mm3 (3.80-5.20); White Blood Cell Count 12.95 K/mm3 (4.00-11.30)
[2021-07-31 17:58] LABS: Anion Gap 4 mmol/L (6-16); Blood Urea Nitrogen 11 mg/dL (8-24); Bun/Creatinine Ratio 16.6 (12.0-20.0); CO2, Blood 30 mmol/L (21-32); Chloride, Blood 100 mmol/L (98-108); Creatinine, Blood 0.66 mg/dL (0.40-1.00); Glomerular Filtration Rate >60 (60-); Glucose, Blood 137 mg/dL (70-99); Sodium, Blood 134 mmol/L (136-145)
== END | disposition home or self-care (01) ==
LOC: LAB HH 15:30 → LAB 15:30
PROVIDERS: Internal Medicine
DX: I10 Essential (primary) hypertension (principal)
CPT/HCPCS: 80048; 85025

== ENCOUNTER → 2021-08-06 | Outpatient (CLI) | payer BC ==
[2021-08-06 17:55] LABS: BASOPHILS ABSOLUTE AUTO 0.04 K/mm3 (0.00-0.23); BASOPHILS PERCENT AUTO 0 % (0-2); EOSINOPHILS ABSOLUTE AUTO 0.19 K/mm3 (0.00-0.68); EOSINOPHILS PERCENT AUTO 2 % (0-6); Hematocrit 38.7 % (33.0-51.0); Hemoglobin 12.4 g/dL (11.5-16.0); IMMATURE GRAN ABSOLUTE AUTO 0.12 K/mm3 (0.00-0.10); IMMATURE GRAN PERCENT AUTO 1 % (0-1); LYMPHOCYTES ABSOLUTE AUTO 2.33 K/mm3 (0.84-5.20); LYMPHOCYTES PERCENT AUTO 19 % (21-46); MONOCYTES ABSOLUTE AUTO 1.43 K/mm3 (0.16-1.47); MONOCYTES PERCENT AUTO 11 % (4-13); Mean Corpuscular Volume 97 fL (80-100); Mean Platelet Volume 10.4 fL (9.1-12.4); NEUTROPHILS PERCENT AUTO 67 % (41-73); Platelet Count 561 K/mm3 (150-400); RDW Coefficient Variation 15.2 % (11.7-14.2); RDW Standard Deviation 53.7 fL (35.1-46.3); White Blood Cell Count 12.51 K/mm3 (4.00-11.30)
== END | disposition home or self-care (01) ==
LOC: LAB HH 16:03 → LAB 16:03
PROVIDERS: Nurse Practitioner
DX: L03.115 Cellulitis of right lower limb (principal); L03.116 Cellulitis of left lower limb
CPT/HCPCS: 85025

== ENCOUNTER → 2021-09-04 | Outpatient (CLI) | payer BC ==
[2021-09-04 13:00] LABS: Alanine Aminotransfer (ALT/SGP 21 U/L (12-78); Albumin, Blood 3.2 g/dL (3.4-5.0); Albumin/Globulin Ratio 0.9 (0.8-1.8); Alk Phos 78 U/L (50-136); Anion Gap 5 mmol/L (6-16); Aspartate Aminotrans (AST/SGOT 16 U/L (12-37); Bilirubin, Total 1.2 mg/dL (0.1-1.0); Blood Urea Nitrogen 10 mg/dL (8-24); Bun/Creatinine Ratio 16.9 (12.0-20.0); CO2, Blood 28 mmol/L (21-32); Chloride, Blood 95 mmol/L (98-108); Cholesterol 165 mg/dL (50-200); Creatinine, Blood 0.59 mg/dL (0.40-1.00); Globulin, Blood 3.6 g/dL (2.2-4.0); Glomerular Filtration Rate >60 (60-); Glucose, Blood 85 mg/dL (70-99); HDL Cholesterol 55 mg/dL (>39); LDL/HDL RATIO 1.7; Low Density Lipoprotein Chol 93 mg/dL (0-110); Potassium, Blood 4.1 mmol/L (3.5-5.5); Sodium, Blood 128 mmol/L (136-145); Total Protein, Blood 6.8 g/dL (6.4-8.2); Triglycerides 85 mg/dL (30-160); Very Low Density Lipoprot Chol 17 mg/dL (6-32)
== END ==
LOC: LAB SHORT 08:40 → LAB 08:40 → LAB HH 08:40
PROVIDERS: Nurse Practitioner
DX: E11.9 Type 2 diabetes mellitus without complications (principal); E78.5 Hyperlipidemia, unspecified; C34.90 Malignant neoplasm of unspecified part of unspecified bronchus or lung; L03.90 Cellulitis, unspecified; I11.0 Hypertensive heart disease with heart failure; I50.9 Heart failure, unspecified; Z88.8 Allergy status to other drugs, medicaments and biological substances; Z88.0 Allergy status to penicillin; Z88.2 Allergy status to sulfonamides; Z88.1 Allergy status to other antibiotic agents
CPT/HCPCS: 80053; 80061; 83036

== ENCOUNTER → 2021-10-17 | Outpatient (CLI) | payer BC | END | disposition home or self-care (01) | LOC: LAB SHORT 14:35 | DX: L65.9 Nonscarring hair loss, unspecified (principal) | CPT/HCPCS: 82306; 82607; 82746 ==

== ENCOUNTER → 2023-04-09 | Outpatient (CLI) | payer BC ==
[2023-04-09 17:41] LABS: BASOPHILS ABSOLUTE AUTO 0.05 K/mm3 (0.00-0.23); BASOPHILS PERCENT AUTO 0 % (0-2); EOSINOPHILS PERCENT AUTO 0 % (0-6); Hematocrit 40.1 % (33.0-51.0); Hemoglobin 13.2 g/dL (11.5-16.0); IMMATURE GRAN ABSOLUTE AUTO 0.11 K/mm3 (0.00-0.10); IMMATURE GRAN PERCENT AUTO 1 % (0-1); LYMPHOCYTES ABSOLUTE AUTO 1.63 K/mm3 (0.84-5.20); LYMPHOCYTES PERCENT AUTO 7 % (21-46); MONOCYTES ABSOLUTE AUTO 1.43 K/mm3 (0.16-1.47); MONOCYTES PERCENT AUTO 6 % (4-13); Mean Corpuscular HGB Conc 32.9 g/dL (31.5-36.5); Mean Corpuscular Volume 97 fL (80-100); Mean Platelet Volume 9.5 fL (9.1-12.4); NEUTROPHILS ABSOLUTE AUTO 19.59 K/mm3 (1.96-9.15); NEUTROPHILS PERCENT AUTO 86 % (41-73); Platelet Count 326 K/mm3 (150-400); RDW Coefficient Variation 14.5 % (11.7-14.2); RDW Standard Deviation 52.1 fL (35.1-46.3); Red Blood Cell Count 4.12 M/mm3 (3.80-5.20); White Blood Cell Count 22.81 K/mm3 (4.00-11.30)
[2023-04-09 18:01] LABS: Bun/Creatinine Ratio 33.6 (12.0-20.0); Calcium, Blood 10.1 mg/dL (8.5-10.1); Creatinine, Blood 0.8 mg/dL (0.40-1.00)
== END | disposition home or self-care (01) ==
LOC: LAB SHORT 14:59 → LAB 14:59
PROVIDERS: Family Medicine
DX: I89.0 Lymphedema, not elsewhere classified (principal)
CPT/HCPCS: 80048; 85025

== ENCOUNTER → 2023-04-30 | Outpatient (CLI) | payer BC ==
[2023-04-30 15:11] LABS: BASOPHILS ABSOLUTE AUTO 0.06 K/mm3 (0.00-0.23); BASOPHILS PERCENT AUTO 1 % (0-2); EOSINOPHILS PERCENT AUTO 1 % (0-6); Hematocrit 45.6 % (33.0-51.0); Hemoglobin 15.3 g/dL (11.5-16.0); IMMATURE GRAN ABSOLUTE AUTO 0.26 K/mm3 (0.00-0.10); IMMATURE GRAN PERCENT AUTO 2 % (0-1); LYMPHOCYTES PERCENT AUTO 28 % (21-46); MONOCYTES ABSOLUTE AUTO 0.73 K/mm3 (0.16-1.47); MONOCYTES PERCENT AUTO 6 % (4-13); Mean Corpuscular HGB 32.6 pg (26.0-34.0); Mean Corpuscular HGB Conc 33.6 g/dL (31.5-36.5); Mean Corpuscular Volume 97 fL (80-100); Mean Platelet Volume 9.8 fL (9.1-12.4); NEUTROPHILS ABSOLUTE AUTO 7.56 K/mm3 (1.96-9.15); NEUTROPHILS PERCENT AUTO 63 % (41-73); Platelet Count 331 K/mm3 (150-400); RDW Coefficient Variation 14.6 % (11.7-14.2); RDW Standard Deviation 52.2 fL (35.1-46.3); White Blood Cell Count 12.11 K/mm3 (4.00-11.30)
[2023-04-30 17:37] LABS: Bun/Creatinine Ratio 27.8 (12.0-20.0); Calcium, Blood 9.4 mg/dL (8.5-10.1); Creatinine, Blood 0.86 mg/dL (0.40-1.00); Potassium, Blood 3.7 mmol/L (3.5-5.5)
== END | disposition home or self-care (01) ==
LOC: LAB SHORT 13:08 → LAB 13:08
PROVIDERS: Family Medicine
DX: L03.90 Cellulitis, unspecified (principal); I89.0 Lymphedema, not elsewhere classified; R73.03 Prediabetes
CPT/HCPCS: 80048; 83036; 85025

== ENCOUNTER 2023-06-14 15:57 | Inpatient (IN) | payer BC ==
[2023-06-14] VITALS (15 sets, daily range): BP systolic 114–144; BP diastolic 69–81
[~2023-06-14] VITALS: Ht 180.3 cm; Wt 156.5 kg
--- NOTE | 2023-06-14 | NUR ---
UPDATE SEVERAL CONVERSATIONS WITH HOSPITALIST REGARDING BOTH NA/K LABS AND PAIN CONTROL. RIGHT NOW PLAN IS TO INFUSE D5 AT 150ML/HR AND HAVE PT ON INSULIN GTT, GLUCOSE CHECK Q1HR, NA CHECK Q2HR. DISSCUSED WITH PATIENT HOME PAIN MED ROUTINE; SHE STATED THAT SHE SEES PAIN SPECIALIST IN [place] AND [facility] WHO PRESCRIBED THE PAIN MEDS. PT GIVEN FIRST DOSE OF PAIN MEDS AND FELL ASLEEP. WAS ONLY ABLE TO COMPLETE HALF OF THE ADDMISSION HX DUE TO THIS. WCTM
[2023-06-14 16:21] LABS: Hematocrit 43.9 % (33.0-51.0); Mean Corpuscular HGB 32.5 pg (26.0-34.0); Mean Corpuscular HGB Conc 36.4 g/dL (31.5-36.5); Mean Corpuscular Volume 89 fL (80-100); Mean Platelet Volume 9.8 fL (9.1-12.4); Platelet Count 344 K/mm3 (150-400); RDW Coefficient Variation 13.5 % (11.7-14.2); RDW Standard Deviation 44.4 fL (35.1-46.3); Red Blood Cell Count 4.92 M/mm3 (3.80-5.20); White Blood Cell Count 15.06 K/mm3 (4.00-11.30)
[2023-06-14 16:28] LABS: Base Excess Venous -6.4 mmol/L; Bicarbonate Venous 20.4 mmol/L (24.0-30.0); PCO2 Venous 30.2 mmHg (38-42)
[2023-06-14 16:48] LABS: Thyroid Stimulating Hormone 3.32 uIU/mL (0.360-4.800)
[2023-06-14 16:49] LABS: BAND PERCENT MAN 5 % (0-8); BASOPHILS PERCENT MAN 0 % (0-2); EOSINOPHILS ABSOLUTE MAN 0.15 K/mm3 (0.00-0.68); EOSINOPHILS PERCENT MAN 1 % (0-6); LYMPHOCYTES ABSOLUTE MAN 1.95 K/mm3 (0.84-5.20); LYMPHOCYTES PERCENT MAN 13 % (21-46); METAMYELOCYTE ABSOLUTE MAN 1.05 K/mm3 (0.00-0.00); METAMYELOCYTE PERCENT MAN 7 % (0-0); MONOCYTES PERCENT MAN 6 % (4-13); MYELOCYTE PERCENT MAN 2 % (0-0); NEUTROPHILS ABSOLUTE MAN 10.69 K/mm3 (1.96-9.15); SEG NEUTROPHILS PERCENT MAN 66 % (41-73); TOTAL CELLS COUNTED 100
[2023-06-14 16:52] LABS: Source, Urine Straight Cath
[2023-06-14 16:55] LABS: Appearance, Urine Hazy (Clear); Bilirubin, Urine Neg (Neg); Blood, Urine 5+ (Neg); Color, Urine Yellow (P-Yellow); Glucose Qualitative, Urine 3+ (Neg); Ketones, Urine Neg (Neg); Leukocyte Esterase, Urine 3+ (Neg); Nitrite, Urine Neg (Neg); Protein, Urine 2+ (Neg); Urobilinogen, Urine NORM (Normal)
[2023-06-14 16:57] LABS: Albumin/Globulin Ratio 0.8 (0.8-1.8); Bilirubin, Total 0.5 mg/dL (0.1-1.0); Calcium, Blood 10.2 mg/dL (8.5-10.1); Creatinine, Blood 1.05 mg/dL (0.40-1.00); Globulin, Blood 3.8 g/dL (2.2-4.0); Total Protein, Blood 6.8 g/dL (6.4-8.2)
[2023-06-14] MEDS ORDERED: K-Dur10 MEQ (16:57)
[2023-06-14] MEDS ORDERED: SYNTHROID100 M14 PO (16:58)
[2023-06-14 17:02] LABS: Hyaline Casts 0-2 /lpf (0-2)
[2023-06-14 17:03] LABS: Bacteria Many /hpf; Squamous Epithelial Cells Not Seen /hpf (Few)
[2023-06-14 17:14] LABS: Potassium, Blood 6.9 mmol/L (3.5-5.5)
[2023-06-14 20:05] LABS: Magnesium, Blood 1.6 mg/dL (1.6-2.4)
[2023-06-14 20:34] LABS: Adenovirus Not Detected (NOT DETECT); Bordetella pertussis Not Detected (NOT DETECT); Chlamydophila pneumoniae Not Detected (NOT DETECT); Coronavirus 229E Not Detected (NOT DETECT); Coronavirus HKU1 Not Detected (NOT DETECT); Coronavirus NL63 Not Detected (NOT DETECT); Coronavirus OC43 Not Detected (NOT DETECT); Human Metapneumovirus Not Detected (NOT DETECT); Human Rhinovirus/Enterovirus Not Detected (NOT DETECT); Influenza A/2009-H1 Not Detected (NOT DETECT); Influenza A/H1 Not Detected (NOT DETECT); Influenza A/H3 Not Detected (NOT DETECT); Influenza B Not Detected (NOT DETECT); Mycoplasma pneumoniae Not Detected (NOT DETECT); Parainfluenza Virus 1 Not Detected (NOT DETECT); Parainfluenza Virus 2 Not Detected (NOT DETECT); Parainfluenza Virus 3 Not Detected (NOT DETECT); Parainfluenza Virus 4 Not Detected (NOT DETECT); Respiratory Syncytial Virus Not Detected (NOT DETECT); SARS-Cov-2 (COVID-19), BioFire Not Detected (NOT DETECT)
[2023-06-14] MEDS ORDERED: ACET500 PO (20:53)
[2023-06-14] MEDS ORDERED: LEVSOD25 PO (20:57)
--- NOTE | 2023-06-14 21:00 | NUR ---
ARRIVAL TO ICU PT ARRIVED TO ICU 3 AT 1940 VIA ED BED AND TRANSFERED OVER TO ICU BED VIA SLIDE SHEET. SHE IS A/O X4 AND ABLE TO MAKE HER NEEDS KNOWN. SPO2 >98% ON RA. NSR WITH RATE 60'S; AMIODERONE INFUSING AT 1MCG/MIN; NO C/O CHEST PAIN. BP STABLE. TOLERATING PO FLUIDS WELL. PUREWICK IN PLACE. PICTURES OF BLE TAKEN AND BOTH ANKLES WRAPPED D/T WEEPING WOUNDS. 3% NS INFUSING 50ML/HR. POWERGLIDE PLACED. SEE ADMISSION ASSESSMENT FOR FULL ASSESSMENT.
[2023-06-14 21:10] LABS: Potassium, Blood 6.4 mmol/L (3.5-5.5)
[2023-06-14 21:47] LABS: Potassium, Blood 6.1 mmol/L (3.5-5.5)
[2023-06-15] VITALS (71 sets, daily range): BP systolic 97–160; BP diastolic 62–93
[2023-06-15 01:18] LABS: Potassium, Blood 5.8 mmol/L (3.5-5.5)
[2023-06-15 05:17] LABS: Hematocrit 39.6 % (33.0-51.0); Hemoglobin 14.6 g/dL (11.5-16.0); Mean Corpuscular HGB Conc 36.9 g/dL (31.5-36.5); Mean Corpuscular Volume 89 fL (80-100); Mean Platelet Volume 9.9 fL (9.1-12.4); Platelet Count 335 K/mm3 (150-400); RDW Coefficient Variation 13.9 % (11.7-14.2); RDW Standard Deviation 45.2 fL (35.1-46.3); Red Blood Cell Count 4.43 M/mm3 (3.80-5.20); White Blood Cell Count 14.53 K/mm3 (4.00-11.30)
[2023-06-15 05:44] LABS: Magnesium, Blood 1.6 mg/dL (1.6-2.4)
[2023-06-15 05:47] LABS: BAND PERCENT MAN 5 % (0-8); BASOPHILS PERCENT MAN 0 % (0-2); EOSINOPHILS ABSOLUTE MAN 0.29 K/mm3 (0.00-0.68); EOSINOPHILS PERCENT MAN 2 % (0-6); LYMPHOCYTES % ATYPICAL MANUAL 2 % (0-0); LYMPHOCYTES ABSOLUTE MAN 2.47 K/mm3 (0.84-5.20); LYMPHOCYTES PERCENT MAN 15 % (21-46); METAMYELOCYTE ABSOLUTE MAN 0.14 K/mm3 (0.00-0.00); METAMYELOCYTE PERCENT MAN 1 % (0-0); MONOCYTES ABSOLUTE MAN 0.58 K/mm3 (0.16-1.47); MONOCYTES PERCENT MAN 4 % (4-13); MYELOCYTE ABSOLUTE MAN 0.14 K/mm3 (0.00-0.00); MYELOCYTE PERCENT MAN 1 % (0-0); NEUTROPHILS ABSOLUTE MAN 10.89 K/mm3 (1.96-9.15); SEG NEUTROPHILS PERCENT MAN 70 % (41-73); TOTAL CELLS COUNTED 100
[2023-06-15 06:02] LABS: Albumin, Blood 2.5 g/dL (3.4-5.0); Albumin/Globulin Ratio 0.8 (0.8-1.8); Bilirubin, Total 0.6 mg/dL (0.1-1.0); Calcium, Blood 9.1 mg/dL (8.5-10.1); Globulin, Blood 3.2 g/dL (2.2-4.0); Potassium, Blood 5.5 mmol/L (3.5-5.5); Total Protein, Blood 5.7 g/dL (6.4-8.2)
--- NOTE | 2023-06-15 07:33 | NUR ---
END OF SHIFT SUMMARY NO ACUTE EVENTS OVERNIGHT. PT WAS ABLE TO SLEEP FOR A FEW HOURS AFTER PAIN WAS BETTER MANAGED. SHE CONT TO BE A/O X4 AND ABLE TO MAKE HER NEEDS KNOWN. NO CHANGES IN RESPIRATORY STATUS. HR 60'S; AMIODERONE INFUSING AT 0.5MCG/MIN STARTING AT 0110. BP STABLE. GLUCOSE NOW 200-250. INSULIN TITRATED AND INFUSING NOW AT 4UNITS/HR. D5 INFUSING AT 150ML/HR. REPORT GIVEN TO MARYURI ROLDAN.
--- NOTE | 2023-06-15 09:41 | NUR ---
Assumed care at approximately 0700. Bedside report received from nightshift RN. Pt alert and oriented, on RA. Insulin infusing at 4 units/hr, amiodarone infusing at 0.5 mg/min, D5 1/2NS 150 ml/hr. Puriwick in place. No acute needs at time of report, will continue to monitor.
[2023-06-15 14:18] LABS: Bun/Creatinine Ratio 31.8 (12.0-20.0); Creatinine, Blood 1.07 mg/dL (0.40-1.00); Potassium, Blood 5.4 mmol/L (3.5-5.5)
[2023-06-15 17:44] LABS: Bun/Creatinine Ratio 31.4 (12.0-20.0); Calcium, Blood 9.3 mg/dL (8.5-10.1); Creatinine, Blood 1.05 mg/dL (0.40-1.00); Potassium, Blood 5.3 mmol/L (3.5-5.5)
--- NOTE | 2023-06-15 18:36 | NUR ---
Called to meet with patient and for advanced care planning. They wanted to change code status. pt is now a DNR and limited treatment. After completing polst went home for the evening. Pt relayed how awful it was to be shocked by ems and still awake. She relayed her struggles with her cancer care. Facilitated her to express her stress and reviewed some advace directive and POA to protect her children. I then steered her to talk about her garden and trees and her love of her pets and her home. Will spen some more time tomorrow with diversion and theraputic conversation.
--- NOTE | 2023-06-15 19:00 | NUR ---
Shift summary. Pt rested in bed throughout shift. A&O x4, on RA. Insulin titrated off, fluids changed to NS at 150 ml/hr, sliding scale coverage added for BG control. Amiodarone drip off per Dr. Francisco at approximately 1230. Pt appeared to have infiltration in R/forearm, IV removed and warm compress applied. Pt c/o of continued pain/swelling at 1800, order obtained for one time dose of amphadase SC to be administered. Sodium declined slightly this evening to 115, order received from Dr. Francisco for 100 ml bolus of 3% saline and lokelma. Pt c/o severe generalized pain this shift, prn pain meds given in addition to scheduled meds. Reassessments unremarkable, see chart for further details. Will continue to monitor and report off to nightshift RN.
[2023-06-15 21:17] LABS: Bun/Creatinine Ratio 33.7 (12.0-20.0); Creatinine, Blood 0.89 mg/dL (0.40-1.00); Potassium, Blood 5.2 mmol/L (3.5-5.5)
[2023-06-16] VITALS (12 sets, daily range): BP systolic 118–152; BP diastolic 67–95
[2023-06-16 02:43] LABS: Bun/Creatinine Ratio 31.2 (12.0-20.0); Calcium, Blood 8.9 mg/dL (8.5-10.1); Creatinine, Blood 0.9 mg/dL (0.40-1.00); Potassium, Blood 5.4 mmol/L (3.5-5.5)
[2023-06-16 05:13] LABS: Hematocrit 40.1 % (33.0-51.0); Hemoglobin 14.1 g/dL (11.5-16.0); Mean Corpuscular HGB Conc 35.2 g/dL (31.5-36.5); Mean Corpuscular Volume 91 fL (80-100); Mean Platelet Volume 9.7 fL (9.1-12.4); Platelet Count 324 K/mm3 (150-400); RDW Coefficient Variation 14.2 % (11.7-14.2); RDW Standard Deviation 48.1 fL (35.1-46.3); Red Blood Cell Count 4.41 M/mm3 (3.80-5.20); White Blood Cell Count 12.64 K/mm3 (4.00-11.30)
[2023-06-16 05:50] LABS: BAND PERCENT MAN 5 % (0-8); BASOPHILS PERCENT MAN 0 % (0-2); EOSINOPHILS PERCENT MAN 0 % (0-6); LYMPHOCYTES % ATYPICAL MANUAL 1 % (0-0); LYMPHOCYTES ABSOLUTE MAN 3.03 K/mm3 (0.84-5.20); LYMPHOCYTES PERCENT MAN 23 % (21-46); METAMYELOCYTE PERCENT MAN 4 % (0-0); MONOCYTES ABSOLUTE MAN 0.25 K/mm3 (0.16-1.47); MONOCYTES PERCENT MAN 2 % (4-13); NEUTROPHILS ABSOLUTE MAN 8.84 K/mm3 (1.96-9.15); SEG NEUTROPHILS PERCENT MAN 65 % (41-73); TOTAL CELLS COUNTED 100
[2023-06-16 05:51] LABS: Albumin, Blood 2.4 g/dL (3.4-5.0); Albumin/Globulin Ratio 0.7 (0.8-1.8); Bilirubin, Total 0.7 mg/dL (0.1-1.0); Bun/Creatinine Ratio 30.5 (12.0-20.0); Calcium, Blood 8.8 mg/dL (8.5-10.1); Creatinine, Blood 0.88 mg/dL (0.40-1.00); Globulin, Blood 3.3 g/dL (2.2-4.0); Potassium, Blood 5.5 mmol/L (3.5-5.5); Total Protein, Blood 5.7 g/dL (6.4-8.2)
--- NOTE | 2023-06-16 06:28 | NUR ---
AOX4. SR WITH FIRST DEGREE AV BLOCK. ROOM AIR. INTERMITTENT NAUSEA OVERNIGHT, RESOLVED WITHOUT MEDICATION. PUREWICK IN PLACE. 3% INFUSING AT 30 ML/HR. 0445 NA 121, NEXT NA CHECK AT 1030.
--- NOTE | 2023-06-16 08:00 | NUR ---
INITIAL ASSESSMENT PATIENT ALERT AND ORIENTED X 4, AFEBRILE. PATIENT COMPLAINS OF PAIN "ALL OVER". PATIENT PLEASANT AND COOPERATIVE. PATIENT WEAK BUT ABLE TO MOVE ALL EXTREMITIES. PATIENT SATTING 90% AND GREATER ON RA. LUNGS CLEAR T/O. PATIENT IN SR WITH FIRST DEGREE AV BLOCK, HR IN THE 70S. SBP IN THE 130S. EDEMA NOTED TO BLES AND BILAT FEET. ABD MILDLY DISTENDED, SOFT, HYPERACTIVE BOWEL SOUNDS NOTED. PATIENT STATES SHE IS SLIGHTLY NAUSEOUS THIS AM. PATIENT STATING THAT SHE IS HAVING MUCH FLATULENCE THIS AM. PATIENT STATES LAST BM WAS 2 DAYS AGO. PUREWICK IN PLACE; DRAINING YELLOW COLORED URINE. CELLULITIS TO BILAT LOWER EXTREMITIES. BLES EXCORIATED AND SCALING. WOUND TO RLE. FACE FLUSHED. R FA REDDENED FROM AMIO INFILTRATION ON A PREVIOUS SHIFT. 3% SALINE INFUSING AT 30 MLS/ HOUR. BED LOW, CALL LIGHT IN REACH.
[2023-06-16] MEDS ORDERED: LEVSOD100 PO ×3 (08:55→09:05)
--- NOTE | 2023-06-16 11:18 | NUR ---
Spiritual Care Visit. Pt. is awake in bed and welcomes my visit. Pt. is pleasant and rapport is soon established. Facilitated a lengthy life review. Pt. verbalized many difficult life situations and diagnosis that she has had to overcome. Listen with empathy, interest and a calming presence. Pt. displayed evidence of emotion as we considered matters of maksim and belief. Again, sought to display empathy and a calming presence. Prayed with Pt. Pt. verbalized gratitude for the spiritual care visit.
--- NOTE | 2023-06-16 12:00 | NUR ---
PATIENT AFEBRILE. HR IN THE 70S. SBP IN THE 150S. BED LOW, CALL LIGHT IN REACH.
[2023-06-16 12:22] LABS: Bun/Creatinine Ratio 36.7 (12.0-20.0); Calcium, Blood 8.4 mg/dL (8.5-10.1); Creatinine, Blood 0.65 mg/dL (0.40-1.00)
--- NOTE | 2023-06-16 12:39 | NUR ---
WOUND CARE BLE LYMPHEDEMA. SHE REPORTS SHE HAS BEEN REFERRED TO OUTPATIENT LYMPHEDEMA CLINIC IN [place] BUT WAS UNABLE TO GO D/T DISTANCE. PT REPORTS SHE IS ALLERGIC TO "EVERYTHING" AND IS UNEASY APPLYING DRESSING TO RLE. AFTER DISCUSSION SHE REPORTS SHE IS COMFORTABLE WITH IODOFLEX/ABD/ROLLED GAUZE. LLE MAY BE LEFT SULEIMAN, OR DRESSED WITH ABD/ROLLED GAUZE.
[2023-06-16 15:54] LABS: Bun/Creatinine Ratio 29.1 (12.0-20.0); Calcium, Blood 8.8 mg/dL (8.5-10.1); Creatinine, Blood 0.83 mg/dL (0.40-1.00); Potassium, Blood 4.8 mmol/L (3.5-5.5)
--- NOTE | 2023-06-16 16:15 | NUR ---
PATIENT AFEBRILE. HR IN THE 70S. SBP IN THE 1-TEENS.
--- NOTE | 2023-06-16 18:40 | NUR ---
SHIFT SUMMARY PATIENT REMAINED ALERT AND ORIENTED X 4, AFEBRILE. PATIENT GIVEN PRN AND SCHEDULED PAIN MEDICATIONS FOR COMPLAINTS OF PAIN "ALL OVER". PATIENT REMAINED WEAK BUT ABLE TO MOVE ALL EXTREMITIES AND GET UP TO BSC WITH 2 PERSON ASSIST, FWW AND GAIT BELT. PATIENT REMAINED SATTING 90% AND GREATER ON RA. PATIENT REMAINED IN SR WITH FIRST DEGREE AV BLOCK, HR 70S TO 80S. SBP 1-TEENS TO 150S. PATIENT HAD OKAY APPETITE. NO BM THIS SHIFT. PATIENT HAD NAUSEA OT THIS MORNING; PATIENT REPORTED RELIEF WITH PRN ZOFRAN. GOOD URINE OUTPUT WITH PUREWICK. PATIENT RELUCTANT TO TURN ON R SIDE. 3% SALINE STOPPED TOWARD END OF SHIFT AND NS STARTED AT 250 MLS/ HOUR. PATIENT RECEIVED 1 G CALCIUM THIS SHIFT. PATIENT HAD COMPLETE BED BATH. REVENUE AGENT CAME TO SEE PATIENT AND PRIMARY NURSE CLEANSED AND DRESSED WOUND ON LEG. BLOOD SUGARS REMAINED IN 200S. IN TO VISIT THIS SHIFT. PATIENT TRANSFERRED TO PCU, ROOM 05. ALL BELONGINGS SENT WITH PATIENT.
[2023-06-16 22:11] LABS: Calcium, Blood 8.4 mg/dL (8.5-10.1); Creatinine, Blood 0.85 mg/dL (0.40-1.00); Potassium, Blood 4.6 mmol/L (3.5-5.5)
[2023-06-17] VITALS (8 sets, daily range): BP systolic 101–125; BP diastolic 56–80
[2023-06-17 04:28] LABS: Hemoglobin 13.1 g/dL (11.5-16.0); Mean Corpuscular HGB 32.3 pg (26.0-34.0); Mean Corpuscular HGB Conc 35.4 g/dL (31.5-36.5); Mean Corpuscular Volume 91 fL (80-100); Mean Platelet Volume 9.3 fL (9.1-12.4); Platelet Count 304 K/mm3 (150-400); RDW Coefficient Variation 14.3 % (11.7-14.2); RDW Standard Deviation 48.1 fL (35.1-46.3); Red Blood Cell Count 4.05 M/mm3 (3.80-5.20); White Blood Cell Count 11.97 K/mm3 (4.00-11.30)
[2023-06-17 05:11] LABS: Albumin, Blood 2.1 g/dL (3.4-5.0); Albumin/Globulin Ratio 0.7 (0.8-1.8); Bilirubin, Total 0.5 mg/dL (0.1-1.0); Bun/Creatinine Ratio 28.4 (12.0-20.0); Calcium, Blood 8.4 mg/dL (8.5-10.1); Creatinine, Blood 0.7 mg/dL (0.40-1.00); Potassium, Blood 4.4 mmol/L (3.5-5.5); Total Protein, Blood 5.1 g/dL (6.4-8.2)
[2023-06-17 05:53] LABS: BAND PERCENT MAN 4 % (0-8); BASOPHILS PERCENT MAN 0 % (0-2); EOSINOPHILS PERCENT MAN 0 % (0-6); LYMPHOCYTES ABSOLUTE MAN 3.59 K/mm3 (0.84-5.20); LYMPHOCYTES PERCENT MAN 30 % (21-46); METAMYELOCYTE ABSOLUTE MAN 0.47 K/mm3 (0.00-0.00); METAMYELOCYTE PERCENT MAN 4 % (0-0); MONOCYTES ABSOLUTE MAN 0.47 K/mm3 (0.16-1.47); MONOCYTES PERCENT MAN 4 % (4-13); MYELOCYTE ABSOLUTE MAN 0.23 K/mm3 (0.00-0.00); MYELOCYTE PERCENT MAN 2 % (0-0); NEUTROPHILS ABSOLUTE MAN 7.18 K/mm3 (1.96-9.15); SEG NEUTROPHILS PERCENT MAN 56 % (41-73); TOTAL CELLS COUNTED 100
--- NOTE | 2023-06-17 06:27 | NUR ---
NOC SHIFT SUMMARY PT ARRIVED FROM ICU03 @ 1900. ORIENTED X4, TALKATIVE AND COOPERATIVE IN ALL CARES. IVF RUNNING PER PROVIDER ORDER, POWERGLIDE TO ANDRE DRAWS WITH POSITIONAL CHANGES. SIGNIFICANT EDEMA AND REDNESS TO LOWER EXTREMITIES, DRESSING INTACT. PW IN PLACE, CHANGED X1 OVERNIGHT. CHRONIC PAIN, PRNS GIVEN. VSS PER PT TREND. WILL PASS ON TO DAY RN.
--- NOTE | 2023-06-17 08:09 | NUR ---
PT NOW IN AFIB. PROVIDER NOTIFIED AT 0800 AND COMING TO UNIT TO ASSESS PT
--- NOTE | 2023-06-17 10:25 | NUR ---
PT EDUCATED ON BENEFITS OF GETTING OUT OF BED AND INTO A CHAIR. SHE TRANSFERED WITH 2 PERSON ASSIST WITH GAIT BELT AND WALKER. SHE WAS ABLE TO TRANSFER TO THE [facility] [place]ILE[place] NEEDS AND RETURNED TO THE CHAIR. HER LEGS ARE ELEVATED TO DECREASE SWELLING AND PAIN.
--- NOTE | 2023-06-17 11:18 | NUR ---
WOUND CARE DONE PER ORDERS. PT TOLERATED WELL, WOUNDS MEDICATED PER MAR, WRAPPED, AND ELEVATED. PT STATES NO FURTHER NEEDS AT THIS TIME, RESTING COMFORTABLY IN CHAIR WITH FRIEND AT BEDSIDE.
--- NOTE | 2023-06-17 12:51 | NUR ---
pt was sleeping in recliner after lunch; Called to check on pt as she was having ongoing atrial fibrillation since this morning, but now rate is 58-61 bpm. PT awakens easily, alert and oriented, and denies any discomfort/pain. blood pressure taken, noted stable. Getting EKG to document pt's rhythm changes.
--- NOTE | 2023-06-17 13:20 | NUR ---
HUMANITIES AND LANGUAGES PROFESSOR NOTIFIED RN OF ARIEL BARBA. EKG DONE. PT TRANSFERED TO BSC AND BACK TO BED FOR COMFORT
--- NOTE | 2023-06-17 14:32 | NUR ---
PT FAMILY LEFT. PATIENT LAYING IN BED IN NO ACUTE DISTRESS AND DENIES NEEDING ANYTHING AT THIS TIME
--- NOTE | 2023-06-17 15:17 | NUR ---
PT GIVEN COLD COMPRESS FOR LOW BACK PAIN AND WARM BLANKET FOR COMFORT
[2023-06-17 15:26] LABS: Bun/Creatinine Ratio 25.4 (12.0-20.0); Calcium, Blood 8.7 mg/dL (8.5-10.1); Creatinine, Blood 0.79 mg/dL (0.40-1.00); Potassium, Blood 4.2 mmol/L (3.5-5.5)
--- NOTE | 2023-06-17 18:46 | NUR ---
NOTIFIED BY TELE THAT PT HEART RATE DROPPED TO 35BPM. PT IS ASYMPTOMATIC AND BLOOD PRESSURE IS 111/69 WITH A MAP OF 80.
[2023-06-18 00:03] VITALS: BP 116/65
[2023-06-18 04:41] VITALS: BP 100/69
[2023-06-18 05:02] LABS: Hematocrit 38.8 % (33.0-51.0); Hemoglobin 13.7 g/dL (11.5-16.0); Mean Corpuscular HGB 32.3 pg (26.0-34.0); Mean Corpuscular HGB Conc 35.3 g/dL (31.5-36.5); Mean Corpuscular Volume 92 fL (80-100); Mean Platelet Volume 9.1 fL (9.1-12.4); Platelet Count 317 K/mm3 (150-400); RDW Coefficient Variation 14.4 % (11.7-14.2); RDW Standard Deviation 48.6 fL (35.1-46.3); Red Blood Cell Count 4.24 M/mm3 (3.80-5.20); White Blood Cell Count 10.66 K/mm3 (4.00-11.30)
--- NOTE | 2023-06-18 05:29 | NUR ---
SHIFT SUMMARY THIS RN ASSUMED CARE OF PATIENT AT 1900. PT NOTED TO BE IN AFIB WITH HR 40-60'S DURING THIS SHIFT. PT DENIES CHEST PAIN/PRESSURE. BP STABLE. AFEBRILE. ON RA WITH SPO2 >92%. PT A&O X4, ABLE TO MAKE NEEDS KNOWN. REPOSITIONED Q2HRS. PT ENCOURAGED TO HELP WITH REPOSITIONING. BLE WOUND CARE DONE AROUND 0400 THIS AM PER ORDER. BED IN LOWEST POSITION AND CALL LIGHT WITHIN REACH. THIS RN WILL REPORT TO ONCOMING RN.
[2023-06-18 05:35] LABS: Albumin, Blood 2.2 g/dL (3.4-5.0); Albumin/Globulin Ratio 0.7 (0.8-1.8); Bilirubin, Total 0.6 mg/dL (0.1-1.0); Bun/Creatinine Ratio 24.9 (12.0-20.0); Calcium, Blood 8.6 mg/dL (8.5-10.1); Creatinine, Blood 0.76 mg/dL (0.40-1.00); Potassium, Blood 3.8 mmol/L (3.5-5.5); Total Protein, Blood 5.2 g/dL (6.4-8.2)
[2023-06-18 06:34] LABS: BAND PERCENT MAN 3 % (0-8); BASOPHILS PERCENT MAN 0 % (0-2); EOSINOPHILS PERCENT MAN 0 % (0-6); LYMPHOCYTES ABSOLUTE MAN 2.98 K/mm3 (0.84-5.20); LYMPHOCYTES PERCENT MAN 28 % (21-46); METAMYELOCYTE ABSOLUTE MAN 0.63 K/mm3 (0.00-0.00); METAMYELOCYTE PERCENT MAN 6 % (0-0); MONOCYTES ABSOLUTE MAN 0.31 K/mm3 (0.16-1.47); MONOCYTES PERCENT MAN 3 % (4-13); NEUTROPHILS ABSOLUTE MAN 6.71 K/mm3 (1.96-9.15); SEG NEUTROPHILS PERCENT MAN 60 % (41-73); TOTAL CELLS COUNTED 100
[2023-06-18 07:47] VITALS: BP 115/68
--- NOTE | 2023-06-18 10:33 | NUR ---
UPADATED PT ON DISCHARGE PLAN
--- NOTE | 2023-06-18 12:15 | NUR ---
PT STATED AND DEMONSTRATED UNDERSTANDING OF ADMINISTRATION OF INSULIN.
[2023-06-18 12:18] VITALS: BP 112/66
[2023-06-18] MEDS ORDERED: SENN187 PO (13:54)
[2023-06-18] MEDS ORDERED: BASAGLAR K100 UNIT/3 SC (13:56)
[2023-06-18] MEDS ORDERED: HUMALOG KW100 UNIT/1 SC (13:57)
[2023-06-18] MEDS ORDERED: ELIQUIS5 M2 PO (13:58)
--- NOTE | 2023-06-18 15:04 | NUR ---
DISCHARGE NOTE PT AND SPOUSE STATED UNDERSTANDING OF DISCHARGE INSTRUCTIONS AND NEW MEDICATIONS. HOME MEDS RETURNED, HARD SCRIPT GIVEN, AND PT MET WITH [facility] FOR ZIO PATCH. PT ESCORTED OUT BY STAFF WITH NO FURTHER QUESTIONS OR CONCERNS.
== END 2023-06-18 15:08 | disposition home or self-care (01) | DRG 641 ==
LOC: ER 15:57 → ICUE 17:58 → PCU 17:58 → ICUE 19:38 → PCU 06-16 19:04
PROVIDERS: Emergency Medicine; Family Medicine; Internal Medicine; Nurse Practitioner Acute Care; ADMIT Internal Medicine
DX: E87.1 Hypo-osmolality and hyponatremia (principal); Z68.43 Body mass index [BMI] 50.0-59.9, adult; I50.32 Chronic diastolic (congestive) heart failure; I47.20 Ventricular tachycardia, unspecified; N39.0 Urinary tract infection, site not specified; E87.5 Hyperkalemia; Z20.822 Contact with and (suspected) exposure to COVID-19; I48.91 Unspecified atrial fibrillation; J45.909 Unspecified asthma, uncomplicated; F41.9 Anxiety disorder, unspecified; E88.81 Metabolic syndrome and other insulin resistance; E86.0 Dehydration; I11.0 Hypertensive heart disease with heart failure; I87.2 Venous insufficiency (chronic) (peripheral); E11.65 Type 2 diabetes mellitus with hyperglycemia; E03.9 Hypothyroidism, unspecified; G89.29 Other chronic pain; M54.9 Dorsalgia, unspecified; F32.A Depression, unspecified; K21.9 Gastro-esophageal reflux disease without esophagitis; E66.01 Morbid (severe) obesity due to excess calories; Z88.2 Allergy status to sulfonamides; Z88.8 Allergy status to other drugs, medicaments and biological substances; Z88.0 Allergy status to penicillin; Z79.899 Other long term (current) drug therapy; Z79.891 Long term (current) use of opiate analgesic; Z79.2 Long term (current) use of antibiotics; Z90.710 Acquired absence of both cervix and uterus; Z90.49 Acquired absence of other specified parts of digestive tract; Z98.891 History of uterine scar from previous surgery; Z90.81 Acquired absence of spleen; Z90.722 Acquired absence of ovaries, bilateral; Z85.72 Personal history of non-Hodgkin lymphomas
CPT/HCPCS: 0202U; 36415; 51701; 71045; 71046; 80048; 80053; 81001; 82310; 82533; 82550; 82803; 82947; 83036; 83735; 83880; 83930; 83935; 84132; 84295; 84300; 84443; 84484; 85025; 90471; 90714; 90715; 93005; 93010; 93246; 93306; 94762; 96365-59; 96367-59; 96375-59; 99285-25; A9270; C1751; J0282; J0612; J0696; J1644; J1815; J2405; J3470; J7030; J7042; J7060

== ENCOUNTER 2023-07-05 09:14 | Inpatient (IN) | payer BC ==
[2023-07-05] VITALS (38 sets, daily range): BP systolic 70–112; BP diastolic 41–76
[~2023-07-05] VITALS: Ht 177.8 cm; Wt 146.6 kg
[~2023-07-05 09:14] MED LIST changes: +ACET500 PO; +BASAGLAR K100 UNIT/3 SC; +ELIQUIS5 M2 PO; +HUMALOG KW100 UNIT/1 SC; +K-Dur10 MEQ; +LEVSOD100 PO; +LEVSOD25 PO; +SENN187 PO; +SYNTHROID100 M14 PO
[2023-07-05 09:42] LABS: BASOPHILS ABSOLUTE AUTO 0.06 K/mm3 (0.00-0.23); BASOPHILS PERCENT AUTO 0 % (0-2); EOSINOPHILS ABSOLUTE AUTO 0.03 K/mm3 (0.00-0.68); EOSINOPHILS PERCENT AUTO 0 % (0-6); Hematocrit 41.4 % (33.0-51.0); Hemoglobin 15.1 g/dL (11.5-16.0); IMMATURE GRAN ABSOLUTE AUTO 0.86 K/mm3 (0.00-0.10); IMMATURE GRAN PERCENT AUTO 5 % (0-1); LYMPHOCYTES ABSOLUTE AUTO 2.63 K/mm3 (0.84-5.20); LYMPHOCYTES PERCENT AUTO 15 % (21-46); MONOCYTES ABSOLUTE AUTO 0.86 K/mm3 (0.16-1.47); MONOCYTES PERCENT AUTO 5 % (4-13); Mean Corpuscular HGB 32.5 pg (26.0-34.0); Mean Corpuscular HGB Conc 36.5 g/dL (31.5-36.5); Mean Corpuscular Volume 89 fL (80-100); Mean Platelet Volume 9.4 fL (9.1-12.4); NEUTROPHILS ABSOLUTE AUTO 13.23 K/mm3 (1.96-9.15); NEUTROPHILS PERCENT AUTO 75 % (41-73); Platelet Count 389 K/mm3 (150-400); RDW Coefficient Variation 13.9 % (11.7-14.2); RDW Standard Deviation 45.3 fL (35.1-46.3); Red Blood Cell Count 4.64 M/mm3 (3.80-5.20); White Blood Cell Count 17.67 K/mm3 (4.00-11.30)
[2023-07-05 09:45] LABS: Calcium, Ionized (POC) 1.21 mmol/L (1.10-1.46); Chloride (POC) 87 mmol/L (98-108); Creatinine (POC) 1.4 mg/dL (0.6-1.0); Glucose (ISTAT POC) 212 mg/dL (70-99); Hemoglobin (POC) 16.7 g/dL (12.0-16.0); Potassium (POC) 6.9 mmol/L (3.5-5.5); Sodium (POC) 108 mmol/L (135-148); Total CO2 (POC) 17 mmol/L (21-32)
[2023-07-05 10:18] LABS: Potassium, Blood 6.9 mmol/L (3.5-5.5)
[2023-07-05 10:19] LABS: Albumin, Blood 2.9 g/dL (3.4-5.0); Albumin/Globulin Ratio 0.8 (0.8-1.8); Bilirubin, Total 0.7 mg/dL (0.1-1.0); Bun/Creatinine Ratio 37.4 (12.0-20.0); Creatinine, Blood 1.31 mg/dL (0.40-1.00); Globulin, Blood 3.7 g/dL (2.2-4.0); Magnesium, Blood 1.8 mg/dL (1.6-2.4); Total Protein, Blood 6.6 g/dL (6.4-8.2)
[2023-07-05 14:39] LABS: Uric Acid, Blood 8.4 mg/dL (2.6-6.0)
[2023-07-05 14:42] LABS: Bun/Creatinine Ratio 37.3 (12.0-20.0); Calcium, Blood 10.3 mg/dL (8.5-10.1); Creatinine, Blood 1.26 mg/dL (0.40-1.00); Potassium, Blood 6.3 mmol/L (3.5-5.5)
[2023-07-05 18:27] LABS: Bun/Creatinine Ratio 35.3 (12.0-20.0); Creatinine, Blood 1.33 mg/dL (0.40-1.00); Potassium, Blood 5.5 mmol/L (3.5-5.5)
--- NOTE | 2023-07-05 18:56 | NUR ---
Summary. Pt arrived to ICU at 1230, alert and oriented, on RA. Pt assessed by Dr. Sena upon arrival. Pt very painful with any movment, prn pain meds given. PG placed, saline locked. Puriwick in place. Pt having episodes of bradycardia down into 30s, not sustained, Dr. Murrieta aware. Pt also slightly hypotensive w/maps remaining above 65. See chart for assessment. Will continue to monitor and report off to nightshift RN.
--- NOTE | 2023-07-05 19:45 | NUR ---
PATIENT AWAKE, VERBALIZED BETTER PAIN CONTROL AT 8/10. ROXICODONE PO GIVEN. HEART MONITOR CONTINUES TO SHOW AFIB WITH RATE 30-40'S AND HYPOTENSION KEEPING MAP > 60. AMIO DRIP REMAINS OFF. PUREWICK IN PLACE DRAINING CLEAR YELLOW URINE. PATIENT FEELING HUNGRY TO CLEAR LIQUIDS WELL. DRESSINGS TO BOTH LEGS CD&I. PATIENT ASSISTING WITH REPOSITIONING IN BED FOR COMFORT.
[2023-07-05 22:22] LABS: Bun/Creatinine Ratio 36.6 (12.0-20.0); Calcium, Blood 9.4 mg/dL (8.5-10.1); Creatinine, Blood 1.34 mg/dL (0.40-1.00); Potassium, Blood 5.1 mmol/L (3.5-5.5)
[2023-07-06] VITALS (50 sets, daily range): BP systolic 85–129; BP diastolic 46–74
[2023-07-06 02:12] LABS: Bun/Creatinine Ratio 35.3 (12.0-20.0); Calcium, Blood 8.9 mg/dL (8.5-10.1); Creatinine, Blood 1.36 mg/dL (0.40-1.00); Potassium, Blood 5.6 mmol/L (3.5-5.5)
--- NOTE | 2023-07-06 02:21 | NUR ---
WHILE SLEEPING PATIENT AGAIN HYPOTENSIVE AND RATE BACK DOWN TO 35-43. 2ND NS 250 CC BOLUS ORDERED. PATIENT AWAKENS EASILY TO SLIGHT STIMULI. REMAINS A&O X4 AND VERBALIZED GOOD PAIN CONTROL. CONTINUES TO REFUSE TO BE REPOSITIONED TO HER SIDE, VERBALIZED UNDERSTANDING REGARDING CONCERN FOR SKIN BREAKDOWN ON BUTTOCKS.
--- NOTE | 2023-07-06 05:19 | NUR ---
SUMMARY PATIENT SLEEPING OFF AND ON T/O NIGHT. VERBALIZED BETTER PAIN CONTROL NIGHT PROGRESSED. AFIB CONTINUES WITH RATE DOWN TO 30'S WHEN SLEEPING. HYPOTENSION CONTINUES MAINTAINING MAP > 60. ALBUMIN AND TOTAL OF NS 500 CC GIVEN DURING THE NIGHT. DRESSING TO RIGHT LEG WITH MOD AMT OF YELLOW DRAINAGE, DRESSING TO LEFT LEG REMAINS D&I.
[2023-07-06 06:22] LABS: Thyroid Stimulating Hormone 3.28 uIU/mL (0.360-4.800)
[2023-07-06 06:34] LABS: Bun/Creatinine Ratio 34.6 (12.0-20.0); Calcium, Blood 8.7 mg/dL (8.5-10.1); Creatinine, Blood 1.3 mg/dL (0.40-1.00); Potassium, Blood 5.5 mmol/L (3.5-5.5)
[2023-07-06 09:33] LABS: Source, Urine Foley catheter
[2023-07-06 10:17] LABS: Appearance, Urine Clear (Clear); Bilirubin, Urine Neg (Neg); Blood, Urine 4+ (Neg); Color, Urine Yellow (P-Yellow); Glucose Qualitative, Urine Neg (Neg); Ketones, Urine Neg (Neg); Leukocyte Esterase, Urine Neg (Neg); Nitrite, Urine Neg (Neg); Protein, Urine Neg (Neg); Specific Gravity, Urine 1.015 (1.003-1.022); Urobilinogen, Urine NORM (Normal)
[2023-07-06 10:25] LABS: Bacteria Few /hpf; Squamous Epithelial Cells Few /hpf (Few)
[2023-07-06 10:34] LABS: Bun/Creatinine Ratio 34.6 (12.0-20.0); Calcium, Blood 8.3 mg/dL (8.5-10.1); Creatinine, Blood 1.27 mg/dL (0.40-1.00); Potassium, Blood 5.4 mmol/L (3.5-5.5)
--- NOTE | 2023-07-06 12:45 | NUR ---
AM NOTES; PT ALERT AND ORIENTED X4, ABLE TO MAKE NEEDS KNOWN, COMMUNICATES WELL. VITALS HRR AFIB 40-60'S, SBP SOFT 90-100'S MAP >60, SATS ABOVE 95% ON RA, AFEBRILE. PT WAS STARTED ON FLUIDS NS AT 80MLS/HR AT THE BEGINNING OF THE SHIFT PER KIDNEY MIGUELINA MEJIA WAS PLACED WELL FOR STRICT I&O'S UA SENT TO LAB, DRESSINGS ON BLE WAS CHANGED PT WITH WEEPING LYMPHEDEMA. PT REMAINS ON 1200MLS FLUID RESTRICTION. PT'S DIET ADVANCED TO SOFT BITE SIZE. REPEAT LABS AT 0900, NA WAS AT 113 DR COLLINS MADE AWARE FLUIDS CHANGED TO NAHCO3 AT 100MLS/HR. REPEAT LABS PER ORDERS. CAME IN THIS MORNING TO VISIT WAS GIVEN UPDATE REGARDING PT'S STATUS. PT STARTED HAVING A MIGRAINE THIS MORNING PT STATED ITS BEEN GOING ON FOR THE LAST 3 DAYS, PT WAS MEDCIATED WITH PAIN MEDS, ANTI NAUSEA AND TYLENOL AND NOTHING WORKED, PT ASKED FOR ATIVAN THEN PT FELL ASLEEP THEN PT STARTED BRADYING DOWN TO HIGH 30'S ON HEART RATE, PT CAN EASILY WOKE UP WIHT NO ISSUES. PT NOW EATING LUNCH. CALL LIGHTS IN REACH WILL CONTINUE TO MONITOR
[2023-07-06 15:56] LABS: Albumin, Blood 3.3 g/dL (3.4-5.0); Anion Gap 9 mmol/L (6-16); Blood Urea Nitrogen 45 mg/dL (8-24); Bun/Creatinine Ratio 32.4 (12.0-20.0); CO2, Blood 20 mmol/L (21-32); Calcium, Blood 8.3 mg/dL (8.5-10.1); Chloride, Blood 86 mmol/L (98-108); Creatinine, Blood 1.39 mg/dL (0.40-1.00); Glomerular Filtration Rate 43 (60-); Glucose, Blood 141 mg/dL (70-99); Phosphorus, Blood 3.6 mg/dL (2.5-4.9); Potassium, Blood 4.9 mmol/L (3.5-5.5); Sodium, Blood 115 mmol/L (136-145)
--- NOTE | 2023-07-06 17:51 | NUR ---
Received a call from pt's daughter Sarah this am. She states she is a nurse, and states that her mother, the patient is ready for hospice care. She states they have had several discussions about it, and they were planning to call her PCP the day she ended up getting admitted to the hospital instead. A conversation with the pt confirmed this, and I involved Clara, the [employer] so she can arrange hospice. As of our last conversation, the pt is set to d/c home with [facility] on 07/08.
--- NOTE | 2023-07-06 18:29 | NUR ---
PT SUMMARY: SEE PREVIOUS NOTES: PALLIATIVE CARE ADDRESSED TO THIS RN ABOUT PT AND FAMILY'S WISHES FOR PT TO GO HOME ON HOSPICE UPON DISCHARGE, PT MADE IT CLEAR THE SHE WANTS TO GET TREATED FIRST AND FEEL A LITTLE BETTER BEFORE GOING HOME, PROVIDER MADE AWARE. PT'S HOME PAIN MEDS RESUMED OXYCONTIN 30MG TID PT WAS C/O NOT GETTING HER PAIN UNDER CONTROL AND MIGRAINE AND NAUSEA, PT REFUSED TO GET REPOSITIONED Q2HRS PT REUQESTED TO GET RESTED DUE TO MIGRAINE, MOVED A COUPLE TIMES IN BED. VITALS HRR AFIB 40-60'S, SBP 90-110'S, SATS ABOVE 95% ON RA, AFEBRILE. SODIUM LEVEL WENT UP TO 115, SODIUM BICARB RUNNING AT 100MLS/HR PT PUT OUT 600MLS TOTAL URINE OUTPUT. FLUID RESTRICTION INCREASED TO 1500MLS/DAY PER DR COLLINS. PT TOLERATING SOFT DIET, DECREASE APPETITE DUE TO NAUSEA WHICH PT MEDICATED TWICE. NO OTHER ISSUES REPORTED PT NOW RESTING IN BED CALL LIGHTS IN REACH WILL REPORT TO ONCOMING SHIFT
--- NOTE | 2023-07-06 20:35 | NUR ---
PATIENT SLEEPING RESP EVEN AND UNLABORED. DUE TO DIFFICULTY WITH PAIN CONTROL DURING THE DAY, LETTING PATIENT SLEEP AT THIS TIME. AFIB ARIEL CONTINUES WITH RATE 40'S. HYPOTENSION CONTINUES MAINTAINING MAP >60. MCINTYRE IN PLACE DRAINING YELLOW URINE.
--- NOTE | 2023-07-06 20:58 | NUR ---
PATIENT AWAKE VERBALIZED THAT MAC HAS IMPROVED, AND THAT SHE WAS GLAD TO GET A SMALL AMT OF SLEEP. CONTINUES TO C/O PAIN WITH SLIGHT MOVEMENTS, CONTINUES TO REFUSE TO LAY ON HER SIDE DUE TO INCREASED PAIN WHILE LAYING ON HER SIDE. PLAN TO CONTINUE TO SHIFT HIPS IN BED FOR PRESSURE RELIEF
[2023-07-06 21:54] LABS: Albumin, Blood 2.9 g/dL (3.4-5.0); Anion Gap 9 mmol/L (6-16); Blood Urea Nitrogen 42 mg/dL (8-24); Bun/Creatinine Ratio 31.1 (12.0-20.0); CO2, Blood 19 mmol/L (21-32); Calcium, Blood 7.8 mg/dL (8.5-10.1); Chloride, Blood 88 mmol/L (98-108); Creatinine, Blood 1.35 mg/dL (0.40-1.00); Glomerular Filtration Rate 44 (60-); Glucose, Blood 137 mg/dL (70-99); Phosphorus, Blood 3.2 mg/dL (2.5-4.9); Potassium, Blood 4.6 mmol/L (3.5-5.5); Sodium, Blood 116 mmol/L (136-145)
[2023-07-07] VITALS (37 sets, daily range): BP systolic 79–134; BP diastolic 43–76
--- NOTE | 2023-07-07 04:44 | NUR ---
PATIENT ARRIVED TO ICU 11 VIA BED FROM [facility]. PATIENT ABLE TO AMBULATE TO ICU BED FROM OUTSIDE OF ROOM, SLIGHTLY UNSTEADY WHEN AMBULATING. PATIENTS IV TO RIGHT WRIST POSITIONAL FLUSHING EASILY. PATIENT RESTLESS AND ASKING IF SHE CAN HAVE FOOD AND BLANKET BROUGHT IN FROM HOME, AND REQUESTING USE OF HER PHONE TO CALL A FRIEND [employer] STARTED AND LIBRIUM PO GIVEN.
[2023-07-07 04:46] LABS: Albumin, Blood 3.1 g/dL (3.4-5.0); Blood Urea Nitrogen 41 mg/dL (8-24); CO2, Blood 21 mmol/L (21-32); Calcium, Blood 7.8 mg/dL (8.5-10.1); Chloride, Blood 85 mmol/L (98-108); Creatinine, Blood 1.28 mg/dL (0.40-1.00); Glomerular Filtration Rate 47 (60-); Glucose, Blood 152 mg/dL (70-99); Phosphorus, Blood 2.8 mg/dL (2.5-4.9); Potassium, Blood 4.5 mmol/L (3.5-5.5)
[2023-07-07 04:47] LABS: Anion Gap 10 mmol/L (6-16); Sodium, Blood 116 mmol/L (136-145)
--- NOTE | 2023-07-07 06:30 | NUR ---
SUMMARY PATIENT SLEEPING OFF AND ON T/O NIGHT. CONTINUES TO HAVE DIFFICULTY WITH PAIN CONTROL. PATIENT NOT WANTING TO BE POSITIONED TO HER SIDE DUE TO INCREASED PAIN. PATIENT CONTINUES TO BE IN AFIB WITH RATE 40-50'S BP SOFT WHILE SLEEPING WITH MAP 60. DRESSINGS INTACT TO BOTH LEGS WITH YELLOW SEROUS DRAINAGE. CONTINUE TO MONITOR CHEM CLOSELY.
--- NOTE | 2023-07-07 07:50 | NUR ---
INITIAL ASSESSMENT PATIENT ALERT AND ORIENTED X 4, AFEBRILE. PATIENT ANXIOUS AT TIMES. PATIENT COOPERATIVE. PATIENT COMPLAINING OF PAIN "ALL OVER"; PRN AND SCHEDULED PAIN MEDICATIONS BEING GIVEN. PATIENT WEAK BUT ABLE TO MOVE ALL EXTREMITIES. PAINFUL LYMPHEDEMA IN BLES THAT MAKES IT HARDER FOR PATIENT TO MOVE. PATIENT SATTING 90% AND GREATER ON RA. LUNGS CLEAR THROUGHOUT; DIM IN LOWER LOBES. PATIENT IN A. FIB WITH BBB, HR IN THE 50S. SBP 90S TO LOW 100S. MAPS 60 AND GREATER. PATIENT HAS BEEN REFUSING ELIQUIS. PATIENT STATES SHE WAS RECENTLY TAKEN OFF OF ELIQUIS (AND SODIUM PILLS) BY HER PCP BECAUSE THEY WERE MAKING HER NAUSEOUS. ABD MODERATELY DISTENDED, SOFT, NONTENDER. PATIENT COMPLAINS OF INTERMITTENT NAUSEA. DATE OF LAST BM BEFORE ADMIT. MCINTYRE IN PLACE DRAINING DARK YELLOW COLORED URINE. LEGS EDEMATOUS AND WEEPING FOUL SMELLING SEROUS FLUID. LEGS CLEANSED WITH NORMAL SALINE AND LEFT OPEN TO AIR WITH DRY FLOW UNDERNEATH AND ON TOP OF. SCATTERED BRUISES NOTED. PANNUS AND THIGH FOLDS REDDENED. SODIUM BICARB IN 1/2 NS INFUSING AT 100 MLS/ HOUR. BLOOD SUGAR 153 THIS AM; COVERAGE ADMINISTERED. BED LOW, CALL LIGHT IN REACH.
--- NOTE | 2023-07-07 09:45 | NUR ---
DR. QUINONES INFORMED THAT PATIENT REFUSING TO TAKE ELIQUIS. PATIENT STATES THAT HER PCP HAD HER STOP TAKING IT AND SODIUM PILLS BECAUSE IT WAS CAUSING HER TO BE NAUSEOUS. INFORMED THAT PATIENT IS ALSO NOT TAKING THYROID PILL AT THIS TIME. PATIENT STATES SHE STILL TAKES THEM AT HOME BUT CANNOT TAKE THE GENERIC PILL HERE BECAUSE SHE IS ALLERGIC TO IT. PATIENT ASKED IF SHE COULD HAVE BRING HOME THYROID PILLS IN AND PATIENT STATED "IT IS TOO MUCH HASSLE". NO ORDERS RECEIVED AT THIS TIME.
[2023-07-07 10:23] LABS: Anion Gap 8 mmol/L (6-16); Blood Urea Nitrogen 40 mg/dL (8-24); Bun/Creatinine Ratio 30.8 (12.0-20.0); CO2, Blood 22 mmol/L (21-32); Calcium, Blood 7.5 mg/dL (8.5-10.1); Chloride, Blood 85 mmol/L (98-108); Glomerular Filtration Rate 46 (60-); Glucose, Blood 192 mg/dL (70-99); Phosphorus, Blood 2.6 mg/dL (2.5-4.9); Potassium, Blood 4.6 mmol/L (3.5-5.5); Sodium, Blood 115 mmol/L (136-145)
--- NOTE | 2023-07-07 12:10 | NUR ---
PATIENT AFEBRILE. HR 40S TO 60S. SBP 90S TO LOW 100S. BLOOD SUGAR 172; COVERAGE ADMINISTERED. 200 MLS OF URINE OUT THIS SHIFT. NO OTHER ACUTE CHANGES TO NOTE ON AT THIS TIME. BED LOW, CALL LIGHT IN REACH.
--- NOTE | 2023-07-07 16:00 | NUR ---
PATIENT AFEBRILE. HR IN THE 40S. HR 90S TO LOW 100S.
[2023-07-07 16:13] LABS: Albumin, Blood 3.3 g/dL (3.4-5.0); Blood Urea Nitrogen 41 mg/dL (8-24); Bun/Creatinine Ratio 33.6 (12.0-20.0); CO2, Blood 23 mmol/L (21-32); Chloride, Blood 84 mmol/L (98-108); Creatinine, Blood 1.22 mg/dL (0.40-1.00); Glomerular Filtration Rate 50 (60-); Glucose, Blood 150 mg/dL (70-99); Phosphorus, Blood 2.6 mg/dL (2.5-4.9); Potassium, Blood 4.9 mmol/L (3.5-5.5)
[2023-07-07 16:14] LABS: Anion Gap 7 mmol/L (6-16); Sodium, Blood 114 mmol/L (136-145)
--- NOTE | 2023-07-07 16:25 | NUR ---
Spoke to pt and her daughter Sarah today. The plan is for pt to go home with [facility] tomorrow. The pt is concerned that she is no longer able to ambulate due to increased weakness, but attempted to encourage her that she will have a hospital bed at home along with the additional help from her family. No changes needed to plan of care at this time.
--- NOTE | 2023-07-07 16:44 | NUR ---
DR. COLLINS UPDATED ON PATIENT STATUS. INFORMED THAT PATIENT HAS ONLY HAD 200 MLS OF URINE OUTPUT THIS SHIFT. INFORMED OF LABS. NO ORDERS OR CHANGES RECEIVED AT THIS TIME.
--- NOTE | 2023-07-07 18:29 | NUR ---
SHIFT SUMMARY PATIENT REMAINED ALERT AND ORIENTED X 4, AFEBRILE. PATIENT GIVEN PRN PAIN MEDICATIONS BOTH SCHEDULED AND PRN FOR COMPLAINTS OF PAIN "ALL OVER". PATIENT WEAK BUT REMAINED ABLE TO MOVE ALL EXTREMITIES. PATIENT PAINFUL IN LEGS WITH MOVEMENT. PATIENT REMAINED SATTING 90% AND GREATER ON RA. PATIENT REMAINED IN A. FIB WITH BBB, HR 30S TO 70S. PATIENT BRADYCARDIC WITH SLEEP. SBP 90S TO 130S. MAPS HAVE REMAINED 60 AND GREATER. PATIENT HAS BEEN REFUSING ELIQUIS. NO BM THIS SHIFT. POOR APPETITE. MCINTYRE DRAINED 350 MLS OF URINE THIS SHIFT. NO CHANGES TO SKIN. PATIENT REPOSITIONED Q2H AND PRN. WOUND CARE PERFORMED TO BILAT LEGS. SODIUM BICARB IN 1/2 NS CHANGED TO NS AT 125 MLS/ HOUR THIS SHIFT. BLOOD SUGARS 138 TO 172 THIS SHIFT. FLUID RESTRICTION AND LABS CANCELLED BY DR. COLLINS PATIENT TO GO HOME ON HOSPICE TOMORROW. IN TO VISIT TWICE THIS SHIFT. PATIENT WILL BE TRANSFERRED TO PCU, ROOM 02 SHORTLY.
--- NOTE | 2023-07-07 18:43 | NUR ---
PATIENT TRANSFERRED TO PCU, ROOM 02. ALL BELONGINGS SENT WITH PATIENT. PATIENT STATED SHE WOULD TEXT HER AND LET HIM KNOW OF THE TRANSFER. TRANSFER COMPLETE.
[2023-07-08 04:00] VITALS: BP 99/62
--- NOTE | 2023-07-08 06:50 | NUR ---
SHIFT SUMMARY A/Ox4 AND COOPERATIVE WITH CARE. ANXIOUS AT TIMES, BUT ANSWERS QUESTIONS APPROPRIATELY AND ABLE TO MAKE HER NEEDS KNOWN. NO ACUTE EVENTS OVERNIGHT FOR PT WAS ABLE TO GET INTERMITTENT EPISODES OF SLEEP. CARDIAC, REMAINS IN AFIB RHYTHM 30-60's WITH NO REPORTS OF CP, PRESSURE, OR DIZZINESS. SBP CONTINUES TO BE SOFT RANGING 90-100's. MAP CONSISTENTLY >65 PER ORDERS. RESPIRATORY, MAINTAINS SPO2 >95% ON RA WITH NO REPORTS OF SOB OR DYSPNEA WHILE AT REST. GI/, MCINTYRE CATH PATENT AND DRAINING YELLOW-REYES COLORED URINE TO GRAVITY. NO BM FOR ME THIS SHIFT. CONTINUES TO HAVE 3-4+ LYMPHEDEMA IN BLE THAT ARE CURRENTLY WEEPING. DISPOSABLE CHUCKS CHANGED PRN TO KEEP C/D. PAIN HAS BEEN WELL MANAGED VIA [facility] WITH BOTH SCHEDULED AND PRN PAIN MEDICATIONS. NS HAS BEEN RUNNING ORDERED VIA EMAR WELL. POTENTIAL D/C HOME ON HOSPICE. ASSESSED PT FOR RISKS OF ANY IGNITION SOURCES WELL BEHAVIORS FOR INCREASED RISKS OF FIRE DANGER. PT EDUCATED ON COMMON SOURCES OF IGNITION WELL NEED TO KEEP A SAFE ENVIRONMENT. PT VOICED UNDERSTANDING. NO NEW ORDERS AT THIS TIME, WILL REPORT TO ONCOMING RN. BRADLEY ROBERTO OF THIS NOTE.
[2023-07-08 08:07] VITALS: BP 132/74
[2023-07-08 11:10] VITALS: BP 129/69
--- NOTE | 2023-07-08 11:28 | NUR ---
DISCHARGE SUMMARY ALERT, ORIENTED, PLEASANT, COOPERATIVE. TELE AFIB ARIEL 40'S TO 60'S. DECLINES CARDIOVERSION AND ELIQUIS. RESP WNL ON ROOM AIR. TOLERATING ADA DIET AND LIQUIDS. CHRONIC MCINTYRE PATENT AND DRAINING DARK YELLOW URINE. BILAT LYMPHEDEMA TO CALVES, ANKLES. 3+ EDEMA WITH WEEPING. BED BATH, NEW LINENS AND DISPOSABLE PADS CHANGED THIS AM. MEDICATED FOR CHRONIC GENERALIZED PAIN PER EMAR. POWERGLIDE DC'D WNL. DISCHARGE EDUCATION GIVEN ON MEDS CHANGES AND FOLLOW UP TODAY WITH HOSPICE AT HOME AND WITH PCP NEEDED. PATIENT RESTING IN BED AT THIS TIME AWAITING TRANSPORT HOME.
--- NOTE | 2023-07-08 12:28 | NUR ---
Spiritual Care Visit. Pt. is awake in bed and welcomes my visit. Pt. and this private duty aide have met before on a previous visit. Pt. verbalized that she expects to be transferred home on hospice today. Pt. displayed evidence of both understanding, and engagement. Pt. verblized that the family is all in agreement with the home hospice decision. Considered matters of maksim and belief. Pt. verbalized that she is ready to go home and has an eternal hope. Prayed with Pt. Pt. verbalized gratitude for the spiritual care visit.
--- NOTE | 2023-07-08 12:59 | NUR ---
PATIENT LEFT UNIT ON [facility] WITH MEDICAL TRANSPORT FOR HOME AT 1240.
== END 2023-07-08 12:36 | disposition hospice, home (50) | DRG 641 ==
LOC: ER 09:14 → ICUE 11:20 → PCU 07-07 19:05
PROVIDERS: Emergency Medicine; Hospitalist; ADMIT Internal Medicine
DX: E87.1 Hypo-osmolality and hyponatremia (principal); I47.20 Ventricular tachycardia, unspecified; Z68.42 Body mass index [BMI] 45.0-49.9, adult; N17.9 Acute kidney failure, unspecified; I50.32 Chronic diastolic (congestive) heart failure; E87.20 Acidosis, unspecified; R62.7 Adult failure to thrive; E87.70 Fluid overload, unspecified; Z66 Do not resuscitate; Z51.5 Encounter for palliative care; E87.5 Hyperkalemia; R60.1 Generalized edema; I87.2 Venous insufficiency (chronic) (peripheral); E03.9 Hypothyroidism, unspecified; M54.9 Dorsalgia, unspecified; G89.29 Other chronic pain; E11.9 Type 2 diabetes mellitus without complications; J45.909 Unspecified asthma, uncomplicated; F41.9 Anxiety disorder, unspecified; F32.A Depression, unspecified; K21.9 Gastro-esophageal reflux disease without esophagitis; I48.91 Unspecified atrial fibrillation; E66.01 Morbid (severe) obesity due to excess calories; I11.0 Hypertensive heart disease with heart failure; E86.9 Volume depletion, unspecified; I89.0 Lymphedema, not elsewhere classified; E86.1 Hypovolemia; Z85.830 Personal history of malignant neoplasm of bone; Z98.890 Other specified postprocedural states; Z90.49 Acquired absence of other specified parts of digestive tract; Z88.2 Allergy status to sulfonamides; Z88.0 Allergy status to penicillin; Z79.01 Long term (current) use of anticoagulants; Z88.8 Allergy status to other drugs, medicaments and biological substances; Z79.899 Other long term (current) drug therapy; Z79.891 Long term (current) use of opiate analgesic; Z90.710 Acquired absence of both cervix and uterus; Z79.4 Long term (current) use of insulin; Z90.722 Acquired absence of ovaries, bilateral; Z90.81 Acquired absence of spleen; Z85.72 Personal history of non-Hodgkin lymphomas
CPT/HCPCS: 36415; 51703; 71045; 80047; 80048; 80053; 80069; 81001; 82533; 82947; 83735; 83935; 84300; 84443; 84484; 84550; 85014; 85025; 93005; 93010; 96374; 96375; 99285-25; A9270; C1751; J0282; J0612; J0780; J1170; J1815; J1940; J7030; J7050; J7060; P9046